=== PATIENT | female | born 1950 | race Caucasian/White ===

== ENCOUNTER 2016-07-21 09:01 | Outpatient (CLI) | payer MEDICARE ==
[2016-07-21] MEDS ORDERED: ALBUTEROL NEB 2.5 MG/3 ML INH ONE (09:36)
== END 2016-07-21 09:02 | disposition home or self-care (01) ==
DX: R06.09 Other forms of dyspnea (principal)
CPT/HCPCS: 94060; 94729; J7613

== ENCOUNTER 2016-08-14 09:07 | Outpatient (CLI) | payer MEDICARE | END 2016-08-14 09:08 | disposition home or self-care (01) | DX: I11.9 Hypertensive heart disease without heart failure (principal) ==

== ENCOUNTER 2017-05-10 12:42 | Emergency (ER) | payer MEDICARE ==
--- NOTE | 2017-05-10 12:57 | ED Physician Documentation ---
PD HPI LOWER EXT INJURY - Stated complaint Stated Complaint: RT KNEE PX - Chief complaint Chief Complaint: Ext Problem - History obtained from History obtained from: Patient - History of Present Illness PD HPI LOW EXT INJURY LOCATION: Right, Knee Type of injury: No: Fall, Twist Timing - onset: How many weeks ago (2 weeks of right knee pain, worse after walking a lot while on vacation in [place]. No calf pain nor lower leg swelling. Has swelling of knee itself.) Timing - duration: Weeks (2 weeks, worse the past few days.) Timing - details: Gradual onset, Still present Worsened by: Moving, Other (walking) Associated symptoms: Swelling. No: Weakness, Numbness Contributing factors: Prosthetic joint Similar symptoms before: Has not had sx before Recently seen: Not recently seen Review of Systems Constitutional: denies: Fever, Chills Skin: denies: Abrasion (s), Laceration (s) Neurologic: denies: Focal weakness, Numbness PD PAST MEDICAL HISTORY - Past Medical History Past Medical History: Yes Cardiovascular: Hypertension, High cholesterol, Other Respiratory: Sleep apnea, Other Neuro: None Endocrine/Autoimmune: HyPOthyroidism GI: GERD, Hiatal hernia : None HEENT: None Psych: Depression Musculoskeletal: Osteoarthritis, Chronic back pain Derm: Other - Past Surgical History Past Surgical History: Yes General: Appendectomy, Colonoscopy, EGD Ortho: Knee replacement, 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 HEENT: Tonsil/Adenoidectomy - Present Medications Home Medications: Ambulatory Orders Medication Instructions Recorded Confirmed Aspirin [Aspir 81] 81 mg PO DAILY 10/07/12 05/10/17 Levothyroxine Sodium [Levothroid] 75 mcg PO DAILY 10/07/12 05/10/17 Simvastatin [Zocor] 20 mg PO QPM 10/07/12 05/10/17 Hydrochlorothiazide 25 mg PO DAILY 01/12/14 05/10/17 Lisinopril 10 mg PO DAILY 01/12/14 05/10/17 Sertraline [Zoloft] 75 mg PO DAILY 05/10/17 05/10/17 Tramadol HCl 50 mg PO Q6H PRN #20 tablet 05/10/17 - Allergies Allergies/Adverse Reactions: Allergies Allergy/AdvReac Type Severity Reaction Status Date / Time oxycodone [Oxycodone] Allergy Intermediate Itching Verified 05/10/17 12:49 codeine [Codeine] AdvReac Mild Nausea Verified 05/10/17 12:49 - Social History Does the pt smoke?: No Smoking Status: Never smoker Does the pt drink ETOH?: Yes Does the pt have substance abuse?: No - Immunizations Immunizations are current?: Yes - POLST Patient has POLST: No PD ED PE NORMAL - Vitals Vital signs reviewed: Yes - General General: Alert and oriented X 3, No acute distress, Well developed/nourished - Derm Derm: Normal color, Warm and dry, No rash - Extremities Extremities: No edema, No calf tenderness / cord, Other (right knee with moderate effusion. No noted laxity on ligament testing. Pain with valgus stress. There is some clunking feeling with Lachmann testing. No laxity. ) - Neuro Neuro: No motor deficit, No sensory deficit - Psych Psych: Normal mood, Normal affect Results - Vitals Vitals: Vital Signs - 24 hr 05/10/17 05/10/17 12:46 14:33 Temperature 36.2 C L 36.4 C L Heart Rate 63 65 Respiratory 18 18 Rate Blood Pressure 149/90 H 146/80 H O2 Saturation 99 97 Oxygen O2 Source [With Activity] Nasal cannula O2 Source [Without Activity] Nasal cannula O2 Source Room air - Rads (name of study) knee right Radiology: Prelim report reviewed, EMP read contemporaneously (hypodensity of bone in proximal tibia, and some demineralization under the implant plateau. ) PD MEDICAL DECISION MAKING - ED course Complexity details: reviewed results, considered differential, d/w patient Departure - Departure Disposition: 01 Home, Self Care Clinical Impression: Knee effusion, right Knee pain, acute Qualifiers: Laterality: right Qualified Code(s): M25.561 - Pain in right knee Condition: Stable Record reviewed to determine appropriate education?: Yes Instructions: ED Effusion Knee Follow-Up: Lane Vaughn MD [Primary Care Provider] - Prescriptions: Tramadol HCl 50 mg PO Q6H PRN #20 tablet PRN Reason: Pain Comments: Use a knee brace when up and around for the next week or so. Have it off of your knee at times with gentle range of motion see her knee does not stiffen. Elevate and ice the knee periodically to help reduce the swelling. The swelling in the knee is mostly fluid inflammation and will just take some time with less irritation to get better. Use some ibuprofen or naproxen twice daily for the next several days. Add Tylenol or tramadol if needed for pain. Call orthopedics for an appointment with us soon follow-up in the next week or 2. Return sooner if worsening or other problems. Discharge Date/Time: 05/10/17 14:33
[2017-05-10] MEDS ORDERED: IBUPROFEN 600 MG TABLET PO STA (13:12)
[2017-05-10] MEDS ORDERED: ACETAMINOPHEN 325 MG TABLET PO STA (13:12)
--- NOTE | 2017-05-10 14:06 | XRAY Preliminary Report ---
Exam: XR KNEE 4 VIEW RT IMPRESSION: 1. Extensive demineralization involving the proximal tibia. Although no acute bony abnormality seen, this area is at markedly increased risk for insufficiency fracture. Recommend consideration of dedica myrna right knee CT scan to evaluate for such. In and of itself full differential of this area of demin eralization would include metastatic lesion, atypical for abscess, although appearance and location f avors benign etiology. 2. Demineralization adjacent to the femoral component more consistent with excessive granulation tiss ue rather than loosening. 3. Tiny joint effusion. [facility] SITE ID: [id number]
--- NOTE | 2017-05-10 14:18 | XRAY Report ---
EXAM: RIGHT KNEE RADIOGRAPHY EXAM DATE: 05/10/2017 01:50 PM. CLINICAL HISTORY: Pain for 2 weeks. No precipitating injury. COMPARISON: None. TECHNIQUE: 4 views. FINDINGS: Bones: Osteopenia. Trabecular and cortical patterns are intact. However, up to 2 cm thick demineralization along the margin of the femoral prosthetic component. Extensive uniform demineralization proximal 5 cm of the [place] residual tibia subjacent to the tibial prosthesis. Thinning of the cortex in both of these regions. Patella and associated prosthesis unremarkable. Joints: Surgical hardware intact. Tiny joint effusion. Bones and anatomic alignment. Soft Tissues: Normal. No soft tissue swelling. IMPRESSION: 1. Extensive demineralization involving the proximal tibia. Although no acute bony abnormality seen, this area is at markedly increased risk for insufficiency fracture. Recommend consideration of dedica myrna right knee CT scan to evaluate for such. In and of itself full differential of this area of demin eralization would include metastatic lesion, atypical for abscess, although appearance and location f avors benign etiology. 2. Demineralization adjacent to the femoral component more consistent with excessive granulation tiss ue rather than loosening. 3. Tiny joint effusion. [facility] Referring Provider Line: [phone] SITE ID: [id number]
[2017-05-10 14:36] VITALS: BP 146/80
== END 2017-05-10 14:33 | disposition home or self-care (01) ==
LOC: ED 12:42
DX: M25.461 Effusion, right knee (principal); M25.561 Pain in right knee; X50.0XXA Overexertion from strenuous movement or load, initial encounter; Y93.01 Activity, walking, marching and hiking; I10 Essential (primary) hypertension; E78.00 Pure hypercholesterolemia, unspecified; E03.9 Hypothyroidism, unspecified; K21.9 Gastro-esophageal reflux disease without esophagitis; M19.90 Unspecified osteoarthritis, unspecified site; Z79.82 Long term (current) use of aspirin
CPT/HCPCS: 29530; 73564; 99283; A9270

== ENCOUNTER 2017-06-03 08:18 | Outpatient (CLI) | payer MEDICARE ==
--- NOTE | 2017-06-03 17:00 | Nuclear Medicine Report ---
EXAM: TRIPLE-PHASE BONE SCAN LIMITED EXAM DATE: 06/03/2017 12:53 PM. CLINICAL HISTORY: RIGHT KNEE LOOSENED PROSTHESIS. COMPARISON: Right knee radiograph 05/10/2017. TECHNIQUE: Patient was injected with 31.9 mCi of technetium 99m MDP intravenously with flow phase lynette ma camera imaging anteriorly over the knees, 5 seconds per frame for 1 minute. Subsequently, blood po ol images of the knees were obtained. The patient returned 3 hours later for multiple spot images of the knees. FINDINGS: Flow Phase: There is moderate asymmetric flow to the region of the right knee. Blood Pool Phase: There is moderate asymmetric uptake/activity in the region of the right knee. Delayed Phase: There is evidence of a total right knee arthroplasty. There is lucency at the medial c ompartment of the left knee which may reflect unicompartmental arthroplasty. There is asymmetric mild -to-moderate periprosthetic uptake at the right knee most pronounced at the proximal tibial metaphysi s medially. IMPRESSION: Asymmetric three-phase uptake at the right knee, nonspecific but may reflect aseptic loos ening. Infection is not excluded. [place] Referring Provider Line: [phone] SITE ID: [id number]
== END 2017-06-03 08:19 | disposition home or self-care (01) ==
LOC: DI 08:18
PROVIDERS: ATTEND Orthopaedic Surgery
DX: T84.032A Mechanical loosening of internal right knee prosthetic joint, initial encounter (principal)
CPT/HCPCS: 78315; A9503

== ENCOUNTER 2017-08-13 12:28 | Emergency (ER) | payer MEDICARE ==
[2017-08-13 12:56] LABS: BASOPHILS # (AUTO) 0.1 10^3/uL (0.0-0.1); BASOPHILS % (AUTO) 1.2 %; EOSINOPHILS # (AUTO) 0.2 10^3/uL (0.0-0.7); EOSINOPHILS % (AUTO) 2.4 %; MEAN CORPUSCULAR HEMOGLOBIN 28.1 pg (27.0-31.0); MEAN CORPUSCULAR HGB CONC 34.1 g/dL (32.0-36.0); MEAN CORPUSCULAR VOLUME 82.4 fL (81.0-99.0); MEAN PLATELET VOLUME 9.2 fL (7.9-10.8); MONOCYTES # (AUTO) 0.7 10^3/uL (0.0-1.0); MONOCYTES % (AUTO) 7.8 %; NEUTROPHILS # (AUTO) 5.5 10^3/uL (1.5-6.6); NEUTROPHILS % (AUTO) 57.6 %; PLT - PLATELET COUNT 199 10^3/uL (130-450); RED BLOOD COUNT 4.63 10^6/uL (4.20-5.40); RED CELL DISTRIBUTION WIDTH 13.6 % (12.0-15.0); WHITE BLOOD COUNT 9.6 x10^3/uL (4.8-10.8)
[2017-08-13] MEDS ORDERED: LORazepam 0.5 MG TABLET PO STA (12:56)
--- NOTE | 2017-08-13 13:07 | ED Physician Documentation ---
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 states she never gets any sleep and is incredibly stressed also she quit using edible marijuana about 2 weeks ago and was started on gabapentin a few weeks ago also on prozac to ED today with agitation very pressured and manic, talking rapidly some flight of ideas, states she can' t take it any more and she just needs to sleep for weeks denies hallucinations denies SI denies HI denies illicit drugs other than THC Review of Systems Constitutional: denies: Fever Cardiac: denies: Chest pain / pressure Respiratory: denies: Dyspnea, Cough GI: denies: Abdominal Pain, Nausea, Vomiting Neurologic: denies: Headache Psychiatric: reports: Anxiety. 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 HEENT: Tonsil/Adenoidectomy - Present Medications Home Medications: Ambulatory Orders Medication Instructions Recorded Confirmed Aspirin [Aspir 81] 81 mg PO DAILY 10/07/12 05/10/17 Levothyroxine Sodium [Levothroid] 75 mcg PO DAILY 10/07/12 05/10/17 Simvastatin [Zocor] 20 mg PO QPM 10/07/12 05/10/17 Hydrochlorothiazide 25 mg PO DAILY 01/12/14 05/10/17 Lisinopril 10 mg PO DAILY 01/12/14 05/10/17 Sertraline [Zoloft] 75 mg PO DAILY 05/10/17 05/10/17 Tramadol HCl 50 mg PO Q6H PRN #20 tablet 05/10/17 - Allergies Allergies/Adverse Reactions: Allergies Allergy/AdvReac Type Severity Reaction Status Date / Time oxycodone [Oxycodone] Allergy Intermediate Itching Verified 05/10/17 12:49 codeine [Codeine] AdvReac Mild Nausea Verified 05/10/17 12:49 - Social History Does the pt smoke?: No Smoking Status: Never smoker Does the pt drink ETOH?: Yes Does the pt have substance abuse?: No - Immunizations Immunizations are current?: Yes - POLST Patient has POLST: No PD ED PE NORMAL - Vitals Vital signs reviewed: Yes - General General: Alert and oriented X 3 - HEENT HEENT: PERRL - Cardiac Cardiac: RRR - Respiratory Respiratory: No respiratory distress, Clear bilaterally - Abdomen Abdomen: Soft, Non tender - Derm Derm: Normal color - Neuro Neuro: Other (extremely agitated, yelling, pressured speech, erratic train of thought but able to answer specific questions clearly, denies SI and HI and hallucinations) Results - Vitals Vitals: Vital Signs - 24 hr 08/13/17 08/13/17 12:30 17:45 Temperature 37 C 36.6 C Heart Rate 96 59 L Respiratory 18 14 Rate Blood Pressure 149/97 H 118/53 L O2 Saturation 99 99 Oxygen O2 Source [] Nasal cannula O2 Source [] Nasal cannula O2 Source Room air - EKG (time done) 1728 Rate: Rate (enter#) (56) Rhythm: NSR Intervals: Normal MA, Wide QRS (borderline). No: Prolonged QT Ischemia: Non specific changes (flat to slightly inv T waves diffusely) Other comments: Other comments (no CP etc - only done per req from receiving mental health facility I presume for interval measurment) - Labs Labs: Laboratory Tests 08/13/17 08/13/17 08/13/17 12:49 12:50 12:50 WBC 9.6 RBC 4.63 Hgb 13.0 Hct 38.2 MCV 82.4 MCH 28.1 MCHC 34.1 RDW 13.6 Plt Count 199 MPV 9.2 Neut # 5.5 Lymph # 3.0 [place] # 0.7 Eos # 0.2 Baso # 0.1 Absolute Nucleated RBC 0.00 Nucleated RBC % 0.0 Sodium 133 L Potassium 3.0 L Chloride 101 Carbon Dioxide 21 Anion Gap 11.0 BUN 23 H Creatinine 1.0 Estimated GFR (MDRD) 55 L Glucose 85 Calcium 8.7 Total Bilirubin 0.7 AST 32 ALT 23 Alkaline Phosphatase 67 Total Protein 7.3 Albumin 4.5 Globulin 2.8 Albumin/Globulin Ratio 1.6 Lipase 29 TSH 2.71 Urine Color Urine Clarity Urine pH Ur Specific [place] Urine Protein Urine Glucose (UA) Urine Ketones Urine Occult Blood Urine Nitrite Urine Bilirubin Urine Urobilinogen Ur Leukocyte Esterase Ur Microscopic Review Urine Culture Comments Salicylates < 6.0 Urine Opiates Screen Ur Oxycodone Screen Urine Methadone Screen Ur Propoxyphene Screen Acetaminophen < 10 L Ur Barbiturates Screen Ur Tricyclics Screen Ur Phencyclidine Scrn Ur Amphetamine Screen U Methamphetamines Scrn U Benzodiazepines Scrn Urine Cocaine Screen U Cannabinoids Screen Ethyl Alcohol < 5.0 08/13/17 08/13/17 08/13/17 13:15 13:15 18:35 WBC RBC Hgb Hct MCV MCH MCHC RDW Plt Count MPV Neut # Lymph # [place] # Eos # Baso # Absolute Nucleated RBC Nucleated RBC % Sodium Potassium 3.0 L Chloride Carbon Dioxide Anion Gap BUN Creatinine Estimated GFR (MDRD) Glucose Calcium Total Bilirubin AST ALT Alkaline Phosphatase Total Protein Albumin Globulin Albumin/Globulin Ratio Lipase TSH Urine Color YELLOW Urine Clarity CLEAR Urine pH 5.0 Ur Specific [place] 1.010 Urine Protein NEGATIVE Urine Glucose (UA) NEGATIVE Urine Ketones NEGATIVE Urine Occult Blood NEGATIVE Urine Nitrite NEGATIVE Urine Bilirubin NEGATIVE Urine Urobilinogen 0.2 (NORMAL) Ur Leukocyte Esterase NEGATIVE Ur Microscopic Review NOT INDICATED Urine Culture Comments NOT INDICATED Salicylates Urine Opiates Screen NEGATIVE Ur Oxycodone Screen NEGATIVE Urine Methadone Screen NEGATIVE Ur Propoxyphene Screen NEGATIVE Acetaminophen Ur Barbiturates Screen NEGATIVE Ur Tricyclics Screen NEGATIVE Ur Phencyclidine Scrn NEGATIVE Ur Amphetamine Screen NEGATIVE U Methamphetamines Scrn NEGATIVE U Benzodiazepines Scrn NEGATIVE Urine Cocaine Screen NEGATIVE U Cannabinoids Screen NEGATIVE Ethyl Alcohol PD MEDICAL DECISION MAKING - ED course ED course: hx bipolar and appears to be manic possibly triggered by stress as caregiver and lack of sleep gave 2 mg ativan PO and pt was able to fall asleep for a while seen by KRIS Singh upon arrival labs done and fine except low K which was repleted - med clear approx 2 PM there is a vol bed at [facility] - they request a baseline EKG which was done KRIS Singh faxed all info including EKG and UA to [facility] prior to end of her shift at approx 5 PM awaiting response / acceptance pt was feeling weak and given food ativan should be wearing off now then developed muscular tightness in her mid right back after laying in a fast track gurney all day I went to eval her again - she is awake alert cooperative now and less pressured - sat up s difficulty or weakness, TTP with mm spasm and limited ROM to R upper lumbar region, MS intact to legs, already did UA neg for blood and infection gave lido patch and warm compress and encourage to to get up and walk around 1899 have not heard back from [facility] - so I called - intake states they did not receive the faxes from - now they have had two new admits and a walk in and a in house transfer - hopefully there is still a bed available - will re- fax info requested 1944 called to confirm faxes received - they were - however the bed the pt was going to in the "older pt" section is no longer available and the doc covering the other adult section is not comfortable accepting a pt of her age - [facility] intake advises they may have a dc and will call us if a bed becomes available but recommends we try transferring the pt elsewhere went and spoke with pt she is improved - we discussed possibly dc home, dc gabapentin, have another family member watch her father for a night or two so she can rest - but she and family still feel inpt care would be beneficial and wish to continue to wait for a bed to become available - found soup and sandwishes for dinner for her, ordered breakfast in the AM, and requested house sup to bring an inpt bed as pt is very uncomfortable on her fast track stretcher care turned over to Dr Byrd overnight EMP - would rec recheck K in the AM, asked nurses to remove lido patch at 12 hr gerda pt and family would like EMR sent to PM[facility] Dr Vaughn as well daughter works at crisis center and is familiar with mental health process Departure - Departure Clinical Impression: Manic behavior Condition: Good Follow-Up: Lane Vaughn MD [Primary Care Provider] -
[2017-08-13 13:11] LABS: ACETAMINOPHEN < 10 ug/mL (10-30); ALBUMIN 4.5 g/dL (3.2-5.5); ALBUMIN/GLOBULIN RATIO 1.6 (1.0-2.2); ALKALINE PHOSPHATASE 67 IU/L (42-121); ALT ALANINE AMINOTRANSFERASE 23 IU/L (10-60); AST ASPARTATE AMINOTRANSFERASE 32 IU/L (10-42); BILIRUBIN,TOTAL 0.7 mg/dL (0.2-1.0); BUN - BLOOD UREA NITROGEN 23 mg/dL (6-20); CALCIUM 8.7 mg/dL (8.5-10.3); CARBON DIOXIDE - CO2 21 mmol/L (21-32); CHLORIDE 101 mmol/L (101-111); GFR - MDRD 55 (>89); GLUCOSE 85 mg/dL (70-100); LIPASE 29 U/L (22-51); SALICYLATE < 6.0 mg/dL; SODIUM 133 mmol/L (135-145); TOTAL PROTEIN 7.3 g/dL (6.7-8.2)
[2017-08-13 13:22] LABS: MUDS CUTOFF CONCENTRATIONS CUTOFF CONC BELOW:
[2017-08-13 13:42] LABS: AMPHETAMINE SCREEN,URINE NEGATIVE (NEGATIVE); BENZODIAZEPINES SCREEN, URINE NEGATIVE (NEGATIVE); COCAINE SCREEN URINE NEGATIVE (NEGATIVE); METHADONE SCREEN, URINE NEGATIVE (NEGATIVE); METHAMPHETAMINES SCREEN, URINE NEGATIVE (NEGATIVE); OPIATE SCREEN, URINE NEGATIVE (NEGATIVE); OXYCODONE SCREEN, URINE NEGATIVE (NEGATIVE); PROPOXYPHENE SCREEN, URINE NEGATIVE (NEGATIVE); TRICYCLIC ANTIDEPRESSANT,URINE NEGATIVE (NEGATIVE)
[2017-08-13] MEDS ORDERED: POTASSIUM CHLORIDE 20 MEQ TABLET PO STA ×2 (15:23→19:13)
[2017-08-13 17:02] LABS: BILIRUBIN,URINE NEGATIVE (NEGATIVE); GLUCOSE, URINE (UA) NEGATIVE (NEGATIVE); KETONES,URINE (UA) NEGATIVE (NEGATIVE); LEUKOCYTE ESTERASE, URINE NEGATIVE (NEGATIVE); NITRITE,URINE NEGATIVE (NEGATIVE); OCCULT BLOOD,URINE NEGATIVE (NEGATIVE); PROTEIN,URINE NEGATIVE (NEGATIVE); UROBILINOGEN,URINE 0.2 (NORMAL) E.U./dL (NORMAL)
[2017-08-13 17:06] LABS: CLARITY,URINE CLEAR (CLEAR)
[2017-08-13] MEDS ORDERED: LIDOCAINE PATCH 5% TOP STA (18:25)
[2017-08-14 05:12] LABS: CALCIUM 8.5 mg/dL (8.5-10.3); CREATININE 0.8 mg/dL (0.4-1.0)
[2017-08-14] MEDS ORDERED: LORazepam 0.5 MG TABLET PO STA (06:19)
[2017-08-14 06:25] VITALS: BP 108/65
--- NOTE | 2017-08-14 09:29 | ED Physician Documentation ---
ED Addendum - Addendum Addendum: 08/14/17 09:27 At change of shift the patient's care was turned over to me pending disposition to mental health facility. Potassium was rechecked and is now normal at 3.9. The patient remained cooperative, and no further medication was administered. The district medical examiner contacted [facility] where the patient will be transferred for inpatient care. Transfer forms were completed, and the patient will be transferred via S ambulance.
== END 2017-08-14 11:00 ==
LOC: ED 12:28
DX: F30.10 Manic episode without psychotic symptoms, unspecified (principal); E87.6 Hypokalemia; I10 Essential (primary) hypertension; E78.00 Pure hypercholesterolemia, unspecified; E03.9 Hypothyroidism, unspecified; K21.9 Gastro-esophageal reflux disease without esophagitis; F32.9 Major depressive disorder, single episode, unspecified; M19.90 Unspecified osteoarthritis, unspecified site; Z79.82 Long term (current) use of aspirin
CPT/HCPCS: 36415; 80048; 80053; 80306; 80307; 81003; 83690; 84132; 84443; 85025; 93005; 99284; 99285; A9270; G0480; 80320; 80329; 81001; 87086

== ENCOUNTER 2017-10-10 11:20 | Outpatient (CLI) | payer MEDICARE | END 2017-10-10 11:21 | disposition home or self-care (01) | LOC: LAB.WCP 11:20 | PROVIDERS: ATTEND Family Medicine | DX: I10 Essential (primary) hypertension (principal) | CPT/HCPCS: 36415; 80048 ==

== ENCOUNTER 2018-01-11 11:41 | Outpatient (CLI) | payer MEDICARE ==
[2018-01-11 12:50] LABS: CALCIUM 8.9 mg/dL (8.5-10.3); CREATININE 1.1 mg/dL (0.4-1.0)
== END 2018-01-11 11:42 | disposition home or self-care (01) ==
LOC: LAB 11:41
PROVIDERS: ATTEND Physician Assistant
DX: E87.6 Hypokalemia (principal)
CPT/HCPCS: 36415; 80048

== ENCOUNTER 2018-09-17 08:00 | Outpatient (CLI) | payer MEDICARE ==
[2018-09-17 13:31] LABS: BASOPHILS # (AUTO) 0.1 10^3/uL (0.0-0.1); BASOPHILS % (AUTO) 1.3 %; EOSINOPHILS # (AUTO) 0.2 10^3/uL (0.0-0.7); EOSINOPHILS % (AUTO) 2.6 %; HGB - HEMOGLOBIN 12.3 g/dL (12.0-16.0); LYMPHOCYTES # (AUTO) 2.3 10^3/uL (1.5-3.5); LYMPHOCYTES % (AUTO) 30.1 %; MEAN CORPUSCULAR HEMOGLOBIN 28.1 pg (27.0-31.0); MEAN CORPUSCULAR HGB CONC 32.6 g/dL (32.0-36.0); MEAN CORPUSCULAR VOLUME 86.1 fL (81.0-99.0); MEAN PLATELET VOLUME 9.2 fL (7.9-10.8); MONOCYTES # (AUTO) 0.5 10^3/uL (0.0-1.0); MONOCYTES % (AUTO) 5.9 %; NEUTROPHILS # (AUTO) 4.6 10^3/uL (1.5-6.6); NEUTROPHILS % (AUTO) 60.1 %; PLT - PLATELET COUNT 192 10^3/uL (130-450); RED BLOOD COUNT 4.38 10^6/uL (4.20-5.40); RED CELL DISTRIBUTION WIDTH 13.9 % (12.0-15.0); WHITE BLOOD COUNT 7.7 x10^3/uL (4.8-10.8)
[2018-09-17 14:08] LABS: ALBUMIN 4.4 g/dL (3.2-5.5); ALBUMIN/GLOBULIN RATIO 1.5 (1.0-2.2); ALKALINE PHOSPHATASE 62 IU/L (42-121); ALT ALANINE AMINOTRANSFERASE 15 IU/L (10-60); AST ASPARTATE AMINOTRANSFERASE 19 IU/L (10-42); BILIRUBIN,TOTAL 0.6 mg/dL (0.2-1.0); BUN - BLOOD UREA NITROGEN 20 mg/dL (6-20); CALCIUM 8.8 mg/dL (8.5-10.3); CARBON DIOXIDE - CO2 25 mmol/L (21-32); CHLORIDE 101 mmol/L (101-111); CHOL/HDL RATIO 3.1 (<4.4); CHOLESTEROL 188 mg/dL; CREATININE 1.1 mg/dL (0.4-1.0); GFR - MDRD 49 (>89); GLUCOSE 88 mg/dL (70-100); HDL CHOLESTEROL 61 mg/dL; LDL CHOLESTEROL,CALCULATED 101 mg/dL; LDL/HDL RATIO 1.7 (<4.4); SODIUM 136 mmol/L (135-145); TOTAL PROTEIN 7.3 g/dL (6.7-8.2); VLDL CHOLESTEROL 26 mg/dL
== END 2018-09-17 23:59 | disposition home or self-care (01) ==
LOC: LAB.WCP 08:00
PROVIDERS: ATTEND Physician Assistant
DX: E78.5 Hyperlipidemia, unspecified (principal)
CPT/HCPCS: 36415; 80053; 80061; 83721; 84443; 85025

== ENCOUNTER 2019-04-23 08:00 | Outpatient (CLI) | payer MEDICARE ==
[2019-04-23 13:02] LABS: BASOPHILS # (AUTO) 0.1 10^3/uL (0.0-0.1); BASOPHILS % (AUTO) 0.6 %; EOSINOPHILS # (AUTO) 0.1 10^3/uL (0.0-0.7); EOSINOPHILS % (AUTO) 1.8 %; HGB - HEMOGLOBIN 13.1 g/dL (12.0-16.0); LYMPHOCYTES # (AUTO) 1.8 10^3/uL (1.5-3.5); LYMPHOCYTES % (AUTO) 23.4 %; MEAN CORPUSCULAR HEMOGLOBIN 28.6 pg (27.0-31.0); MEAN CORPUSCULAR VOLUME 89.5 fL (81.0-99.0); MEAN PLATELET VOLUME 11.9 fL (7.9-10.8); MONOCYTES # (AUTO) 0.5 10^3/uL (0.0-1.0); MONOCYTES % (AUTO) 6.1 %; NEUTROPHILS # (AUTO) 5.3 10^3/uL (1.5-6.6); NEUTROPHILS % (AUTO) 67.8 %; PLT - PLATELET COUNT 180 10^3/uL (130-450); RED BLOOD COUNT 4.58 10^6/uL (4.20-5.40); RED CELL DISTRIBUTION WIDTH 13.2 % (12.0-15.0); WHITE BLOOD COUNT 7.8 x10^3/uL (4.8-10.8)
[2019-04-23 13:10] LABS: ALBUMIN 4.6 g/dL (3.2-5.5); ALBUMIN/GLOBULIN RATIO 1.4 (1.0-2.2); ALKALINE PHOSPHATASE 74 IU/L (42-121); ALT ALANINE AMINOTRANSFERASE 15 IU/L (10-60); AST ASPARTATE AMINOTRANSFERASE 17 IU/L (10-42); BILIRUBIN,TOTAL 0.5 mg/dL (0.2-1.0); BUN - BLOOD UREA NITROGEN 27 mg/dL (6-20); CALCIUM 9.2 mg/dL (8.5-10.3); CARBON DIOXIDE - CO2 24 mmol/L (21-32); CHLORIDE 106 mmol/L (101-111); CHOLESTEROL 179 mg/dL; CREATININE 1.2 mg/dL (0.4-1.0); GFR - MDRD 44 (>89); GLUCOSE 84 mg/dL (70-100); HDL CHOLESTEROL 60 mg/dL; LDL CHOLESTEROL,CALCULATED 91 mg/dL; LDL/HDL RATIO 1.5 (<4.4); SODIUM 139 mmol/L (135-145); TOTAL PROTEIN 7.8 g/dL (6.7-8.2); VLDL CHOLESTEROL 28 mg/dL
== END 2019-04-23 23:59 | disposition home or self-care (01) ==
LOC: LAB.WCP 08:00
PROVIDERS: ATTEND Physician Assistant
DX: I10 Essential (primary) hypertension (principal); E78.9 Disorder of lipoprotein metabolism, unspecified; E03.9 Hypothyroidism, unspecified
CPT/HCPCS: 36415; 80053; 80061; 83721; 84443; 85025

== ENCOUNTER 2019-10-04 18:17 | Emergency (ER) | payer MEDICARE ==
[2019-10-04] MEDS ORDERED: ONDANSETRON 4 MG/2 ML VIAL IVP STA (18:38)
[2019-10-04] MEDS ORDERED: HYDROmorphone 1 MG/ML CARPUJECT IVP STA (18:38)
--- NOTE | 2019-10-04 18:40 | ED Physician Documentation ---
PD HPI ABD PAIN - Stated complaint Stated Complaint: ABD PX/BACK PX - Chief complaint Chief Complaint: Trauma Abd - History obtained from History obtained from: Patient (She has had right upper quadrant pain radiating to the back or right back pain radiating to the right upper quadrant for the last 3 days. It is worse in the afternoons. She is been nauseous and has had a poor appetite. No fevers or chills. She has a history of hysterectomy and appendectomy.) Review of Systems Ten Systems: 10 systems reviewed and negative Constitutional: denies: Fever, Chills Respiratory: denies: Dyspnea, Cough GI: reports: Abdominal Pain, Nausea PD PAST MEDICAL HISTORY - Past Medical History Cardiovascular: Hypertension, High cholesterol, Other Respiratory: Sleep apnea, Other Endocrine/Autoimmune: HyPOthyroidism GI: GERD, Hiatal hernia : None HEENT: None Psych: Depression Musculoskeletal: Osteoarthritis, Chronic back pain Derm: Other - Past Surgical History Past Surgical History: Yes General: Appendectomy, Colonoscopy, EGD Ortho: Knee replacement, 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 HEENT: Tonsil/Adenoidectomy - Present Medications Home Medications: Ambulatory Orders Medication Instructions Recorded Confirmed Aspirin [Aspir 81] 81 mg PO DAILY 10/07/12 05/10/17 Levothyroxine Sodium [Levothroid] 75 mcg PO DAILY 10/07/12 05/10/17 Simvastatin [Zocor] 20 mg PO QPM 10/07/12 05/10/17 Hydrochlorothiazide 25 mg PO DAILY 01/12/14 05/10/17 Lisinopril 10 mg PO DAILY 01/12/14 05/10/17 Sertraline [Zoloft] 75 mg PO DAILY 05/10/17 05/10/17 Tramadol HCl 50 mg PO Q6H PRN #20 tablet 05/10/17 Hydrocodone/Acetaminophen 1 - 2 each PO Q6H PRN #14 tablet 10/04/19 [Hydrocodon-Acetaminophen 5-325] Omeprazole 20 mg PO DAILY #30 capsule. 10/04/19 - Allergies Allergies/Adverse Reactions: Allergies Allergy/AdvReac Type Severity Reaction Status Date / Time oxycodone [Oxycodone] Allergy Intermediate Itching Verified 05/10/17 12:49 codeine [Codeine] AdvReac Mild Nausea Verified 05/10/17 12:49 - Social History Does the pt smoke?: No Smoking Status: Never smoker Does the pt drink ETOH?: Yes Does the pt have substance abuse?: No - Immunizations Immunizations are current?: Yes - POLST Patient has POLST: No PD ED PE NORMAL - Vitals Vital signs reviewed: Yes - General General: Alert and oriented X 3 (She appears uncomfortable and is clutching her right upper abdomen) - HEENT HEENT: PERRL, EOMI - Neck Neck: Supple, no meningeal sign, No bony TTP - Cardiac Cardiac: RRR, No murmur - Respiratory Respiratory: No respiratory distress, Clear bilaterally - Abdomen Abdomen: Other (Focally tender in the epigastrium and right upper quadrant with positive Benavidez sign) - Back Back: Other (There is a red gerda on her right flank from using heating pad there, it is not consistent with shingles at this point.) - Derm Derm: Normal color, Warm and dry - Extremities Extremities: No edema, No calf tenderness / cord - Neuro Neuro: Alert and oriented X 3, Normal speech Results - Vitals Vitals: Vital Signs - 24 hr 10/04/19 10/04/19 18:27 21:39 Temperature 36.6 C 36.5 C Heart Rate 58 L 50 L Respiratory 16 16 Rate Blood Pressure 118/58 L 103/59 L O2 Saturation 96 100 Oxygen O2 Source [With Activity] Nasal cannula O2 Source [Without Activity] Nasal cannula O2 Source Room air - Labs Labs: Laboratory Tests 10/04/19 10/04/19 10/04/19 18:50 18:50 18:50 WBC 8.4 RBC 4.18 L Hgb 12.1 Hct 36.8 L MCV 88.0 MCH 28.9 MCHC 32.9 RDW 13.9 Plt Count 173 MPV 11.1 H Neut # (Auto) 5.0 Lymph # (Auto) 2.5 [place] # (Auto) 0.5 Eos # (Auto) 0.2 Baso # (Auto) 0.1 Absolute Nucleated RBC 0.00 Nucleated RBC % 0.0 PT 13.8 H INR 1.2 Sodium 137 Potassium 3.7 Chloride 106 Carbon Dioxide 24 Anion Gap 7.0 BUN 24 H Creatinine 1.0 Estimated GFR (MDRD) 55 L Glucose 98 Calcium 8.6 Total Bilirubin 0.5 AST 16 ALT 14 Alkaline Phosphatase 69 Troponin I High Sens Total Protein 6.8 Albumin 4.1 Globulin 2.7 Albumin/Globulin Ratio 1.5 Lipase 45 10/04/19 18:50 WBC RBC Hgb Hct MCV MCH MCHC RDW Plt Count MPV Neut # (Auto) Lymph # (Auto) [place] # (Auto) Eos # (Auto) Baso # (Auto) Absolute Nucleated RBC Nucleated RBC % PT INR Sodium Potassium Chloride Carbon Dioxide Anion Gap BUN Creatinine Estimated GFR (MDRD) Glucose Calcium Total Bilirubin AST ALT Alkaline Phosphatase Troponin I High Sens < 2.3 L Total Protein Albumin Globulin Albumin/Globulin Ratio Lipase PD MEDICAL DECISION MAKING - ED course ED course: 69-year-old woman presents with right upper quadrant pain radiating to the back. Initial concern was for cholecystitis but no evidence of this on labs or ultrasound. This was followed by CT angiography to assess her vasculature, and notable for esophagitis versus esophageal mass. She did obtain significant relief with pain medications here and also with a GI cocktail. Discussed the need for follow-up endoscopy. Departure - Departure Disposition: 01 Home, Self Care Clinical Impression: Spasm of back muscles, Esophagitis, Abdominal pain Condition: Good Record reviewed to determine appropriate education?: Yes Instructions: ED GERD Prescriptions: Hydrocodone/Acetaminophen [Hydrocodon-Acetaminophen 5-325] 1 - 2 each PO Q6H PRN #14 tablet PRN Reason: pain Omeprazole 20 mg PO DAILY #30 capsule. Comments: Follow-up with your primary care physician, you will need a follow-up upper endoscopy. Return for new or worsening symptoms.
[2019-10-04 18:56] LABS: BASOPHILS # (AUTO) 0.1 10^3/uL (0.0-0.1); BASOPHILS % (AUTO) 0.6 %; EOSINOPHILS # (AUTO) 0.2 10^3/uL (0.0-0.7); EOSINOPHILS % (AUTO) 2.3 %; HGB - HEMOGLOBIN 12.1 g/dL (12.0-16.0); LYMPHOCYTES # (AUTO) 2.5 10^3/uL (1.5-3.5); LYMPHOCYTES % (AUTO) 30.1 %; MEAN CORPUSCULAR HEMOGLOBIN 28.9 pg (27.0-31.0); MEAN CORPUSCULAR HGB CONC 32.9 g/dL (32.0-36.0); MEAN PLATELET VOLUME 11.1 fL (7.9-10.8); MONOCYTES # (AUTO) 0.5 10^3/uL (0.0-1.0); MONOCYTES % (AUTO) 6.5 %; NEUTROPHILS % (AUTO) 60.1 %; PLT - PLATELET COUNT 173 10^3/uL (130-450); RED BLOOD COUNT 4.18 10^6/uL (4.20-5.40); RED CELL DISTRIBUTION WIDTH 13.9 % (12.0-15.0); WHITE BLOOD COUNT 8.4 x10^3/uL (4.8-10.8)
[2019-10-04 19:02] LABS: INR 1.2 (0.8-1.2); PT - PROTHROMBIN TIME 13.8 secs (9.9-12.6)
[2019-10-04 19:09] LABS: ALBUMIN 4.1 g/dL (3.2-5.5); ALBUMIN/GLOBULIN RATIO 1.5 (1.0-2.2); BILIRUBIN,TOTAL 0.5 mg/dL (0.2-1.0); CALCIUM 8.6 mg/dL (8.5-10.3); TOTAL PROTEIN 6.8 g/dL (6.7-8.2)
[2019-10-04] MEDS ORDERED: IOVERSOL 320 100 ML VIAL IVP ONE ×2 (20:00→20:59)
--- NOTE | 2019-10-04 20:03 | Ultrasound Report ---
Reason: RUQ pain Procedure Date: 10/04/2019 Accession Number: [id number] / [id number] Procedure: US - Abdomen Limited CPT Code: Final Report FULL RESULT: EXAM: ABDOMEN ULTRASOUND LIMITED, RUQ EXAM DATE: 10/04/2019 07:32 PM. CLINICAL HISTORY: RUQ pain. COMPARISON: None. TECHNIQUE: Real-time scanning was performed with static images obtained. FINDINGS: Liver: Normal in size and diffuse increased echotexture, suggestive of steatosis. 17.3 cm. Main portal vein flow: Hepatopetal. Gallbladder: Normal. No stones, wall thickening, or sonographic Benavidez's sign. Biliary System: CBD measures 4 mm. No intrahepatic or extrahepatic ductal dilatation. Other: Normal appearing right kidney. No ascites. IMPRESSION: Hepatic steatosis. No cholelithiasis or cholecystitis. [facility]
--- NOTE | 2019-10-04 21:34 | CT Report ---
Reason: abdominal/back pain Procedure Date: 10/04/2019 Accession Number: [id number] / [id number] Procedure: CT - ANGIO ABDOMEN/PELVIS W CPT Code: Final Report FULL RESULT: EXAM: CT ANGIOGRAM ABDOMEN AND PELVIS WITH CONTRAST EXAM DATE: 10/04/2019 08:55 PM. CLINICAL HISTORY: Abdominal/back pain. COMPARISONS: Ultrasound 10/04/2019, abdomen and pelvis 08/19/2015. TECHNIQUE: Routine helical CT angiogram imaging was performed through the abdomen and pelvis in the arterial phase. IV contrast: Optiray 320. Enteric contrast: No. Reconstructions: Coronal, sagittal, and 3D MIP reconstructions. In accordance with CT protocol optimization, one or more of the following dose reduction techniques were utilized for this exam: automated exposure control, adjustment of mA and/or KV based on patient size, or use of iterative reconstructive technique. FINDINGS: Vasculature: Minimal atherosclerotic calcification is present. No aneurysm or dissection. No occlusion or stenosis. Lung Bases: Normal. Abdominal Solid Organs: Normal. The liver, spleen, pancreas, adrenal glands, gallbladder and kidneys are normal in size and demonstrate no masses or abnormal enhancement. Peritoneal Cavity: Normal. No free fluid, free air, or acute inflammatory process. No bowel dilatation or acute inflammatory process. Pelvic Organs: The patient has had a hysterectomy. The bladder is unremarkable. Bones: Degenerative changes in the visualized spine. Other: None. IMPRESSION: No acute findings. RADIA
--- NOTE | 2019-10-04 21:36 | CT Report ---
Reason: abdominal/back pain Procedure Date: 10/04/2019 Accession Number: [id number] / [id number] Procedure: CT - ANGIO CHEST W/WO CPT Code: Final Report FULL RESULT: EXAM: CT ANGIOGRAM CHEST WITHOUT AND WITH CONTRAST EXAM DATE: 10/04/2019 08:57 PM. CLINICAL HISTORY: Abdominal/back pain. COMPARISON: None. TECHNIQUE: Routine helical imaging was performed through the chest before and after intravenous contrast. IV contrast: 100 mL Optiray 320. Reconstructions: Coronal, sagittal, and 3D MIP reconstructions of the aorta. FINDINGS: Vascular Structures: There is no acute aortic intramural hematoma. No aneurysm or dissection. Mild descending thoracic aortic atherosclerosis. There is moderate to severe atherosclerotic cardiovascular disease at the origin of the celiac axis, with mild luminal narrowing. There is mild to moderate atherosclerotic cardiovascular disease within the proximal SMA, partially visualized. There is at least mild narrowing of the SMA (image 140 series 3). Lungs/Pleura: No significant pulmonary consolidation. Nonspecific small lobular gas trapping within the right lower lobe. No effusion. No definite pneumothorax visualized. The central airways are without suspicious filling defect. Mediastinum: There is nonspecific mild fluid distended esophagus throughout the mediastinum, with mild apparent wall thickening of the lower esophagus. Possible small hiatal hernia noted. No pathologic mediastinal lymphadenopathy. Normal heart size. No pericardial effusion noted. Chest Wall: Nonspecific tiny left thyroid nodular density, of uncertain clinical significance. No pathologic axillary lymphadenopathy. Upper Abdomen: Limited visualized portions of the upper abdomen are without significant abnormality. Bones: No definite suspicious bony lesions are noted. Moderate to severe multilevel degenerative change within the spine. Other: None. IMPRESSION: 1. No acute aortic abnormality. 2. There is no incidental main, lobar, or proximal segmental embolism. 3. No acute pulmonary abnormality. 4. Mild descending thoracic atherosclerosis. Moderate upper abdominal aortic atherosclerosis with mild to moderate narrowing of the celiac axis as well as the proximal SMA. 5. Mild wall thickening of the lower half of the esophagus. There is fluid throughout the length of the esophagus within the mediastinum. Small hiatal hernia suspected. Combining findings could be secondary to reflux and esophagitis versus a distal esophageal mass. Further characterization could be considered with a nonemergent outpatient endoscopy. RADIA
[2019-10-04] MEDS ORDERED: MAG HYDROX/AL HYDROX/SIMETH 30 ML UDC PO STA (21:40)
[2019-10-04] MEDS ORDERED: LIDOCAINE VISCOUS 2% 15 ML UDC MM STA (21:40)
[2019-10-04] MEDS ORDERED: PANTOPRAZOLE 40 MG VIAL IVP STA (22:26)
[2019-10-04] MEDS ORDERED: HYDROcod/ACET 5/325 Prepack 4 PO STA (22:27)
[2019-10-04 22:41] VITALS: BP 102/50
== END 2019-10-04 22:53 | disposition home or self-care (01) ==
LOC: ED 18:17
DX: M62.830 Muscle spasm of back (principal); K20.9 Esophagitis, unspecified; R10.11 Right upper quadrant pain; I10 Essential (primary) hypertension
CPT/HCPCS: 36415; 71275; 74174; 76705; 80053; 83690; 84484; 85025; 85610; 96374; 96375; 99284; A9270; J1170; Q9967

== ENCOUNTER 2019-11-17 10:31 | Day surgery (SDC) | payer MEDICARE ==
[2019-11-17] MEDS ORDERED: MIDAZOLAM 2 MG/2 ML VIAL IVP ONE (10:32)
[2019-11-17] MEDS ORDERED: fentaNYL 250 MCG/5 ML VIAL IVP ONE (10:32)
[2019-11-17] MEDS ORDERED: LACTATED RINGERS 1,000 ML IV ONE (13:15)
[2019-11-17 15:10] VITALS: BP 150/78
== END 2019-11-17 10:32 | disposition home or self-care (01) ==
LOC: SDS 10:31
PROVIDERS: ATTEND Surgery
PROC: 0DB58ZX Excision of Esophagus, Via Natural or Artificial Opening Endoscopic, Diagnostic (ICD-10-PCS; principal; 2019-11-17 11:30)
DX: R13.10 Dysphagia, unspecified (principal); K21.9 Gastro-esophageal reflux disease without esophagitis; Z87.891 Personal history of nicotine dependence; I11.9 Hypertensive heart disease without heart failure
CPT/HCPCS: 43239; J3010; J7120

== ENCOUNTER 2019-11-26 12:48 | Outpatient (CLI) | payer MEDICARE | END 2019-11-26 12:49 | disposition critical access hospital (66) | LOC: EMS 12:48 | PROVIDERS: ATTEND Surgery | DX: R46.89 Other symptoms and signs involving appearance and behavior (principal) | CPT/HCPCS: A0425; A0428 ==

== ENCOUNTER 2019-11-26 13:00 | Emergency (ER) | payer MEDICARE ==
[2019-11-26 13:56] LABS: MUDS CUTOFF CONCENTRATIONS CUTOFF CONC BELOW:
[2019-11-26 14:01] LABS: BILIRUBIN,URINE NEGATIVE (NEGATIVE); GLUCOSE, URINE (UA) NEGATIVE (NEGATIVE); KETONES,URINE (UA) NEGATIVE (NEGATIVE); LEUKOCYTE ESTERASE, URINE NEGATIVE (NEGATIVE); NITRITE,URINE NEGATIVE (NEGATIVE); OCCULT BLOOD,URINE NEGATIVE (NEGATIVE); PH,URINE 5.5 PH (5.0-7.5); PROTEIN,URINE NEGATIVE (NEGATIVE); UROBILINOGEN,URINE 0.2 (NORMAL) E.U./dL (NORMAL)
[2019-11-26 14:02] LABS: BASOPHILS # (AUTO) 0.1 10^3/uL (0.0-0.1); BASOPHILS % (AUTO) 0.6 %; EOSINOPHILS # (AUTO) 0.1 10^3/uL (0.0-0.7); EOSINOPHILS % (AUTO) 1.5 %; HGB - HEMOGLOBIN 13.2 g/dL (12.0-16.0); LYMPHOCYTES # (AUTO) 1.6 10^3/uL (1.5-3.5); LYMPHOCYTES % (AUTO) 19.7 %; MEAN CORPUSCULAR HEMOGLOBIN 29.1 pg (27.0-31.0); MEAN CORPUSCULAR HGB CONC 32.8 g/dL (32.0-36.0); MEAN PLATELET VOLUME 10.7 fL (7.9-10.8); MONOCYTES # (AUTO) 0.5 10^3/uL (0.0-1.0); MONOCYTES % (AUTO) 5.7 %; NEUTROPHILS # (AUTO) 5.7 10^3/uL (1.5-6.6); NEUTROPHILS % (AUTO) 72.1 %; PLT - PLATELET COUNT 195 10^3/uL (130-450); RED BLOOD COUNT 4.53 10^6/uL (4.20-5.40); RED CELL DISTRIBUTION WIDTH 13.5 % (12.0-15.0); WHITE BLOOD COUNT 7.9 x10^3/uL (4.8-10.8)
[2019-11-26 14:02] LABS: CLARITY,URINE SL. CLOUDY (CLEAR)
[2019-11-26 14:09] LABS: BACTERIA,URINE Rare /HPF (None Seen); RBC,URINE None Seen /HPF (0-5); SQUAMOUS EPITHELIAL CELL,UR MANY Squamous (<= Few)
[2019-11-26 14:12] LABS: AMPHETAMINE SCREEN,URINE NEGATIVE (NEGATIVE); BENZODIAZEPINES SCREEN, URINE NEGATIVE (NEGATIVE); COCAINE SCREEN URINE NEGATIVE (NEGATIVE); METHADONE SCREEN, URINE NEGATIVE (NEGATIVE); METHAMPHETAMINES SCREEN, URINE NEGATIVE (NEGATIVE); OPIATE SCREEN, URINE NEGATIVE (NEGATIVE); OXYCODONE SCREEN, URINE NEGATIVE (NEGATIVE); PROPOXYPHENE SCREEN, URINE NEGATIVE (NEGATIVE); TRICYCLIC ANTIDEPRESSANT,URINE POSITIVE (NEGATIVE)
[2019-11-26 14:19] LABS: ACETAMINOPHEN < 10 ug/mL (10-30); ALBUMIN 5.2 g/dL (3.2-5.5); ALBUMIN/GLOBULIN RATIO 2.3 (1.0-2.2); ALKALINE PHOSPHATASE 72 IU/L (42-121); ALT ALANINE AMINOTRANSFERASE 13 IU/L (10-60); AST ASPARTATE AMINOTRANSFERASE 15 IU/L (10-42); BILIRUBIN,TOTAL 0.5 mg/dL (0.2-1.0); BUN - BLOOD UREA NITROGEN 20 mg/dL (6-20); CALCIUM 9.1 mg/dL (8.5-10.3); CARBON DIOXIDE - CO2 26 mmol/L (21-32); CHLORIDE 102 mmol/L (101-111); CREATININE 1.3 mg/dL (0.4-1.0); GLUCOSE 104 mg/dL (70-100); LIPASE 53 U/L (22-51); SALICYLATE < 6.0 mg/dL; SODIUM 136 mmol/L (135-145); TOTAL PROTEIN 7.5 g/dL (6.7-8.2)
--- NOTE | 2019-11-26 14:46 | ED Physician Documentation ---
PD HPI MHE - Stated complaint Stated Complaint: MHE - Chief complaint Chief Complaint: MHE - History obtained from History obtained from: Patient, EMS - History of Present Illness Primary symptom: Manic, Aggressive behavior, Medical clearance - Additional information Additional information: 69-year-old female brought into the emergency department for mental health evaluation. Patient reports that she does have a history of bipolar disorder. Her daughter had verbally reported to the nurses that patient's been having increasing insomnia over the last few days the this week osborne of family anniversary of multiple deaths. Patient felt that she was not safe with her family and barricaded herself in the barn at home. She did not want her family to be around her and did not feel safe therefore the patient herself called EMS or 911.Patient may have been using a knife to paint but did not threaten anybody with it. Patient is not able to describe the medications that she is taking to me but says she has not taken them for a while. She admits to daily cannabis use. She denies auditory or visual hallucinations. She does not have thoughts of self-harm. Patient states that she simply will not go home anymore and she does not want to be around her family. Review of Systems Constitutional: denies: Fever, Chills Cardiac: denies: Chest pain / pressure, Palpitations, Pedal edema, Calf pain Respiratory: denies: Dyspnea, Cough GI: denies: Abdominal Pain, Abdominal Swelling, Diarrhea : denies: Dysuria, Frequency Skin: denies: Rash, Lesions Neurologic: denies: Generalized weakness, Headache, Head injury, LOC Psychiatric: reports: Insomnia, Other (Increasing reese over the last few days. Does not feel safe at home). denies: Depressed, Suicidal, Homicidal PD PAST MEDICAL HISTORY - Past Medical History Cardiovascular: Hypertension, High cholesterol, Other Respiratory: Sleep apnea, Other Endocrine/Autoimmune: HyPOthyroidism GI: GERD, Hiatal hernia : None HEENT: None Psych: Depression, Anxiety, Bipolar disorder, Panic attacks, Post traumatic stress disorder Musculoskeletal: Osteoarthritis, Chronic back pain Derm: Other - Past Surgical History Past Surgical History: Yes General: Appendectomy, Colonoscopy, EGD Ortho: Knee replacement, 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 surgery /POSTBED STITCHER: Hysterectomy HEENT: Tonsil/Adenoidectomy - Present Medications Home Medications: Ambulatory Orders Medication Instructions Recorded Confirmed Aspirin [Aspir 81] 81 mg PO DAILY 10/07/12 05/10/17 Levothyroxine Sodium [Levothroid] 75 mcg PO DAILY 10/07/12 11/17/19 Simvastatin [Zocor] 40 mg PO QPM 10/07/12 11/17/19 Lisinopril 10 mg PO DAILY 01/12/14 11/17/19 Sertraline [Zoloft] 75 mg PO DAILY 05/10/17 11/17/19 Omeprazole 40 mg PO DAILY 11/17/19 11/17/19 QUEtiapine [SEROquel] 100 mg PO QPM 11/17/19 11/17/19 Trazodone HCl 150 mg PO DAILY 11/17/19 11/17/19 lamoTRIgine [Lamotrigine] 25 mg PO BID 11/17/19 11/17/19 Atorvastatin [Lipitor] 40 mg ORAL DAILY 11/26/19 11/26/19 QUEtiapine [SEROquel] 25 mg PO DAILY 11/26/19 11/26/19 - Allergies Allergies/Adverse Reactions: Allergies Allergy/AdvReac Type Severity Reaction Status Date / Time oxycodone [Oxycodone] Allergy Intermediate Itching Verified 11/26/19 13:21 codeine [Codeine] AdvReac Mild Nausea Verified 11/26/19 13:21 - Social History Does the pt smoke?: No Smoking Status: Never smoker Does the pt drink ETOH?: Yes Does the pt have substance abuse?: No - Immunizations Immunizations are current?: Yes - POLST Patient has POLST: No PD ED PE NORMAL - General General: Alert and oriented X 3, No acute distress, Well developed/nourished - HEENT HEENT: PERRL, EOMI - Cardiac Cardiac: RRR, No murmur - Respiratory Respiratory: No respiratory distress - Abdomen Abdomen: Normal bowel sounds, Soft - Derm Derm: Normal color, Warm and dry - Extremities Extremities: No deformity, No tenderness to palpate, Normal ROM s pain - Neuro Neuro: Alert and oriented X 3, associate embalmer/funeral director 2-12 intact, No motor deficit, No sensory deficit Eye Opening: Spontaneous Motor: Obeys Commands Verbal: Oriented GCS Score: 15 - Psych Psych: Other (Patient isFearful of being at her home. She is not agitated but her expressions are very exaggerated. She has no auditory or visual hallucinations and she is very cooperative with the ER staff) Results - Vitals Vitals: Vital Signs - 24 hr 11/26/19 13:00 Temperature 36.5 C Heart Rate 80 Respiratory 18 Rate Blood Pressure 136/109 H O2 Saturation 100 Oxygen O2 Source [] Nasal cannula O2 Source [] Nasal cannula O2 Source Room air - EKG (time done) 1543 Rate: Rate (enter#) (65) Rhythm: NSR [place]: Normal Intervals: Normal [place], Other (QTc 495) QRS: Normal Ischemia: Normal ST segments Compare to prior EKG: Old EKG unavailable Computer interpretation: Agree with computer - Labs Labs: Laboratory Tests 11/26/19 11/26/19 11/26/19 13:00 13:54 13:54 WBC 7.9 RBC 4.53 Hgb 13.2 Hct 40.3 MCV 89.0 MCH 29.1 MCHC 32.8 RDW 13.5 Plt Count 195 MPV 10.7 Neut # (Auto) 5.7 Lymph # (Auto) 1.6 [place] # (Auto) 0.5 Eos # (Auto) 0.1 Baso # (Auto) 0.1 Absolute Nucleated RBC 0.00 Nucleated RBC % 0.0 Sodium 136 Potassium 4.3 Chloride 102 Carbon Dioxide 26 Anion Gap 8.0 BUN 20 Creatinine 1.3 H Estimated GFR (MDRD) 40 L Glucose 104 H Calcium 9.1 Total Bilirubin 0.5 AST 15 ALT 13 Alkaline Phosphatase 72 Total Protein 7.5 Albumin 5.2 Globulin 2.3 Albumin/Globulin Ratio 2.3 H Lipase 53 H TSH Urine Color YELLOW Urine Clarity SL. CLOUDY Urine pH 5.5 Ur Specific [place] 1.020 Urine Protein NEGATIVE Urine Glucose (UA) NEGATIVE Urine Ketones NEGATIVE Urine Occult Blood NEGATIVE Urine Nitrite NEGATIVE Urine Bilirubin NEGATIVE Urine Urobilinogen 0.2 (NORMAL) Ur Leukocyte Esterase NEGATIVE Urine RBC None Seen Urine WBC 0-3 Ur Squamous Epith Cells MANY Squamous H Urine Bacteria Rare Ur Microscopic Review INDICATED Urine Culture Comments NOT INDICATED Salicylates < 6.0 Urine Opiates Screen NEGATIVE Ur Oxycodone Screen NEGATIVE Urine Methadone Screen NEGATIVE Ur Propoxyphene Screen NEGATIVE Acetaminophen < 10 L Ur Barbiturates Screen NEGATIVE Ur Tricyclics Screen POSITIVE H Ur Phencyclidine Scrn NEGATIVE Ur Amphetamine Screen NEGATIVE U Methamphetamines Scrn NEGATIVE U Benzodiazepines Scrn NEGATIVE Urine Cocaine Screen NEGATIVE U Cannabinoids Screen POSITIVE H Ethyl Alcohol < 5.0 11/26/19 13:54 WBC RBC Hgb Hct MCV MCH MCHC RDW Plt Count MPV Neut # (Auto) Lymph # (Auto) [place] # (Auto) Eos # (Auto) Baso # (Auto) Absolute Nucleated RBC Nucleated RBC % Sodium Potassium Chloride Carbon Dioxide Anion Gap BUN Creatinine Estimated GFR (MDRD) Glucose Calcium Total Bilirubin AST ALT Alkaline Phosphatase Total Protein Albumin Globulin Albumin/Globulin Ratio Lipase TSH 1.28 Urine Color Urine Clarity Urine pH Ur Specific [place] Urine Protein Urine Glucose (UA) Urine Ketones Urine Occult Blood Urine Nitrite Urine Bilirubin Urine Urobilinogen Ur Leukocyte Esterase Urine RBC Urine WBC Ur Squamous Epith Cells Urine Bacteria Ur Microscopic Review Urine Culture Comments Salicylates Urine Opiates Screen Ur Oxycodone Screen Urine Methadone Screen Ur Propoxyphene Screen Acetaminophen Ur Barbiturates Screen Ur Tricyclics Screen Ur Phencyclidine Scrn Ur Amphetamine Screen U Methamphetamines Scrn U Benzodiazepines Scrn Urine Cocaine Screen U Cannabinoids Screen Ethyl Alcohol PD MEDICAL DECISION MAKING - ED course Complexity details: reviewed results, re-evaluated patient, d/w patient ED course: 69-year-old female who has a history of a bipolar disorder because she has been developing increasing reese over the last few weeks and no longer feels safe with her family. She barricaded herself in a barn and called 911 to retrieve her. She denies thoughts of harm to herself or others but simply does not want to be around her family anymore. At present she does not have any SI or HI. She denies any hallucinations as well. However she is adamant that she cannot return to her home and will kill herself if forced to return - After lengthy emergency department visit stay patient has been evaluated by tele-psych. The tele-psych provider described the patient as acutely psychotic with delusions of paranoia. Though her hospitalization is voluntary he would recommend placement. - Patient was refused by [facility] secondary to a Qt-c of 495 on EKG. Patient also spoke with [facility] mental health providers on the phone while here in the emergency department. Though they have evaluated the tele-psych documentation they do not feel that patient needs inpatient psychiatric treatment and have therefore refused her. - At this time we will be boarding the patient overnight in the emergency department. We will have social work and/or [facility] evaluate pt in the am for further placement. Pt has starr ordered for administration tonight and is otherwise stable Departure - Departure Clinical Impression: Paranoia
--- NOTE | 2019-11-26 19:45 | TELEPSYCH PHYS NOTE ---
Telepsych Note - CHIEF COMPLAINT/HX OF PRESENT ILLNESS Cheif Complaint and History of Present Illness: Chief Complaint: Im afraid for my life. HPI: The patient is a 69-year-old female with a history of Bipolar Disorder. She was brought to the hospital due to extreme paranoia. The patient was barricading herself in her room because she was afraid of her family. When seen by psychiatry, the patient stated that her grandson is a heroin addict and the mother is enabling him. "He's allowing illegal things that happen inside the house." The patient repeatedly stated that she was "afraid for her life." She was rambling and hyper verbal. The patient is unable to articulate exactly how she was at risk. Patient denied hallucinations. She originally denied suicidal thoughts but said that she would rather kill herself the return home due to the threat. "No one believes me and they think I'm crazy." The patient reports that she is compliant with her psychiatric regimen. - SI/HI/SELF HARM SI/HI/Self Harm Text (Current or History of):: tried to overdose on pills in the past. - VIOLENCE/LEGAL/COLLATERAL Violence - Legal - Collateral: Violence: none Legal: arrested for shoplifting at 13 Collateral: none - PSYCHIATRIC HX/TREATMENT HX Psychiatric: Depression, Anxiety, Bipolar disorder, Panic attacks, Post traumatic stress disorder Psychiatric/Treatment Hx Other: 3 prior admissions, last at [facility] 2017. - DRUG/ALCOHOL HX Substance use/abuse/alcohol text: MJ-daily - MEDICAL HX Does the pt have a hx of MRSA?: No Eyes, Ears, Nose, Throat: None Cardiovascular: Hypertension, High cholesterol, Other Respiratory: Sleep apnea, Other Skin: Other Endocrine/Autoimmune: HyPOthyroidism Gastrointestinal: GERD, Hiatal hernia Urinary: None Musculoskeletal: Osteoarthritis, Chronic back pain - SURGICAL HX General: Appendectomy, Colonoscopy, EGD Orthopedic: Knee replacement, 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 surgery Gynecologic: Hysterectomy - HOME MEDICATIONS Home Meds (as last confirmed): Patient History Medication Instructions Recorded Confirmed Aspirin [Aspir 81] 81 mg PO DAILY 10/07/12 05/10/17 Levothyroxine Sodium [Levothroid] 75 mcg PO DAILY 10/07/12 11/17/19 Simvastatin [Zocor] 40 mg PO QPM 10/07/12 11/17/19 Lisinopril 10 mg PO DAILY 01/12/14 11/17/19 Sertraline [Zoloft] 75 mg PO DAILY 05/10/17 11/17/19 Omeprazole 40 mg PO DAILY 11/17/19 11/17/19 QUEtiapine [SEROquel] 100 mg PO QPM 11/17/19 11/17/19 Trazodone HCl 150 mg PO DAILY 11/17/19 11/17/19 lamoTRIgine [Lamotrigine] 25 mg PO BID 11/17/19 11/17/19 Atorvastatin [Lipitor] 40 mg ORAL DAILY 11/26/19 11/26/19 QUEtiapine [SEROquel] 25 mg PO DAILY 11/26/19 11/26/19 - ALLERGIES Allergies (as last confirmed): Allergies Allergy/AdvReac Type Severity Reaction Status Date / Time oxycodone [Oxycodone] Allergy Intermediate Itching Verified 11/26/19 13:21 codeine [Codeine] AdvReac Mild Nausea Verified 11/26/19 13:21 - FAMILY PSYCH/SUICIDE/SOCIAL HX-MENTAL Family - Suicide - Social Hx and Mental Status Exam: Family Psychiatric History: "They all have PTSD, Bipolar Disorder, and depression." Social History: , Lives with children Employment: none Education: HS grad, some college Stressors: see HPI History: none Abuse: none Mental Status Examination: Attitude and behavior: cooperative, + PM agitation Speech: hyperverbal, pressured Affect and mood: anxious affect and mood Association and thought processes: disorganized Thought content: + paranoid delusions, the patient initially denied suicidal thoughts but said that she would rather end her life and return home Perception: no hallucinations Sensorium, memory, and orientation: AAOx3 Intellectual functioning: average Insight and judgment: impaired - PATIENT PROBLEM LIST (1) Bipolar disorder, current episode manic without psychotic features Impression: The patient is a 69-year-old female with a history of Bipolar Disorder who presented to the hospital with paranoid delusions. Patient believes that she is in danger and she has verbalized suicidal ideations if she is forced to return home. Patient is abusing marijuana which is likely impacting her current presentation. She was brought to the hospital after barricading herself in her home due to her psychosis. The patient is grossly psychiatrically impaired and in need of inpatient treatment. She is agreeable to inpatient psychiatric care. It is voluntary. (2) Bipolar disorder, manic Qualifiers: Psychotic features: with psychotic features - TREATMENT/PHARMACOLOGICAL RECOMMENDATION Treatment - Pharmacological - Therapy Recommendations: Start Seroquel 50 mg QAM and 150 mg QHS. Continue Lamictal 25 mg BID and Zoloft 75 mg daily. Transfer to a psychiatric bed was available. Initiate involuntary commitment if the patient changes her mind. - TIME SPENT & PROVIDER LOCATION Telepsych consultation conducted via videoconferencing: Yes List names and roles of persons who participated in consult: Baudilio Stanley MD Telepsych Provider Location: [place] Time Telepsych consult began: 18:48 Time Telepsych consult completed: 19:10
[2019-11-26] MEDS ORDERED: QUEtiapine 100 MG TABLET PO SCH (21:00)
[2019-11-27] MEDS ORDERED: QUEtiapine 25 MG TABLET PO STA (08:19)
[2019-11-27] MEDS ORDERED: lamoTRIgine 25 MG TABLET PO STA (08:19)
[2019-11-27] MEDS ORDERED: SERTRALINE 25 MG TABLET PO STA (08:20)
[2019-11-27] MEDS ORDERED: lisinopriL 5 MG TABLET PO STA (08:21)
[2019-11-27] MEDS ORDERED: PANTOPRAZOLE 40 MG TABLET PO STA (08:21)
[2019-11-27] MEDS ORDERED: LEVOTHYROXINE 75 MCG TABLET PO STA (08:22)
[2019-11-27] MEDS ORDERED: ASPIRIN CHEW 81 MG TABLET PO STA (08:22)
--- NOTE | 2019-11-27 08:53 | ED Physician Documentation ---
PD HPI MHE - Stated complaint Stated Complaint: MHE - Chief complaint Chief Complaint: MHE PD PAST MEDICAL HISTORY - Past Medical History Past Medical History: Yes Cardiovascular: Hypertension, High cholesterol, Other Respiratory: Sleep apnea, Other Endocrine/Autoimmune: HyPOthyroidism GI: GERD, Hiatal hernia : None HEENT: None Psych: Depression, Anxiety, Bipolar disorder, Panic attacks, Post traumatic stress disorder Musculoskeletal: Osteoarthritis, Chronic back pain Derm: Other - Past Surgical History Past Surgical History: Yes General: Appendectomy, Colonoscopy, EGD Ortho: Knee replacement, 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 surgery /SEAMER: Hysterectomy HEENT: Tonsil/Adenoidectomy - Present Medications Home Medications: Ambulatory Orders Medication Instructions Recorded Confirmed Aspirin [Aspir 81] 81 mg PO DAILY 10/07/12 05/10/17 Levothyroxine Sodium [Levothroid] 75 mcg PO DAILY 10/07/12 11/17/19 Simvastatin [Zocor] 40 mg PO QPM 10/07/12 11/17/19 Lisinopril 10 mg PO DAILY 01/12/14 11/17/19 Aspirin 81 mg PO DAILY #7 tab.chew 11/27/19 Atorvastatin [Lipitor] 40 mg ORAL DAILY #7 tab 11/27/19 Levothyroxine [Synthroid] 75 mcg PO QDAC #7 tablet 11/27/19 Lisinopril [Prinivil] 10 mg PO DAILY #7 tablet 11/27/19 Omeprazole 40 mg PO DAILY #14 tab 11/27/19 QUEtiapine [SEROquel] 25 mg PO DAILY #7 tab 11/27/19 QUEtiapine [SEROquel] 100 mg PO QPM #7 tab 11/27/19 Sertraline [Zoloft] 75 mg PO DAILY #21 tab 11/27/19 Trazodone HCl 150 mg PO QPM #7 tab 11/27/19 lamoTRIgine [Lamotrigine] 25 mg PO BID #14 tab 11/27/19 - Allergies Allergies/Adverse Reactions: Allergies Allergy/AdvReac Type Severity Reaction Status Date / Time oxycodone [Oxycodone] Allergy Intermediate Itching Verified 11/26/19 13:21 codeine [Codeine] AdvReac Mild Nausea Verified 11/26/19 13:21 - Social History Does the pt smoke?: No Smoking Status: Never smoker Does the pt drink ETOH?: Yes Does the pt have substance abuse?: No - Immunizations Immunizations are current?: Yes - POLST Patient has POLST: No Results - Vitals Vitals: Vital Signs - 24 hr 11/26/19 11/27/19 11/27/19 21:31 00:55 06:15 Temperature 36.8 C Heart Rate 65 69 72 Respiratory 17 16 16 Rate Blood Pressure 122/58 L 124/68 147/92 H O2 Saturation 100 100 99 11/27/19 11/27/19 12:42 15:05 Temperature 37.2 C 37.2 C Heart Rate 72 69 Respiratory 16 16 Rate Blood Pressure 109/53 L 123/87 H O2 Saturation 98 99 Oxygen O2 Source [] Nasal cannula O2 Source [] Nasal cannula O2 Source Room air - EKG (time done) 0838 Rate: Rate (enter#) (65) Rhythm: NSR, LAE QRS: LVH Compare to prior EKG: Changed from prior EKG (SPT 11-26-2019 the QTc has decreased) Computer interpretation: Agree with computer - Labs Labs: Laboratory Tests 11/26/19 11/26/19 11/26/19 13:00 13:54 13:54 WBC 7.9 RBC 4.53 Hgb 13.2 Hct 40.3 MCV 89.0 MCH 29.1 MCHC 32.8 RDW 13.5 Plt Count 195 MPV 10.7 Neut # (Auto) 5.7 Lymph # (Auto) 1.6 [place] # (Auto) 0.5 Eos # (Auto) 0.1 Baso # (Auto) 0.1 Absolute Nucleated RBC 0.00 Nucleated RBC % 0.0 Sodium 136 Potassium 4.3 Chloride 102 Carbon Dioxide 26 Anion Gap 8.0 BUN 20 Creatinine 1.3 H Estimated GFR (MDRD) 40 L Glucose 104 H Calcium 9.1 Total Bilirubin 0.5 AST 15 ALT 13 Alkaline Phosphatase 72 Total Protein 7.5 Albumin 5.2 Globulin 2.3 Albumin/Globulin Ratio 2.3 H Lipase 53 H TSH Urine Color YELLOW Urine Clarity SL. CLOUDY Urine pH 5.5 Ur Specific [place] 1.020 Urine Protein NEGATIVE Urine Glucose (UA) NEGATIVE Urine Ketones NEGATIVE Urine Occult Blood NEGATIVE Urine Nitrite NEGATIVE Urine Bilirubin NEGATIVE Urine Urobilinogen 0.2 (NORMAL) Ur Leukocyte Esterase NEGATIVE Urine RBC None Seen Urine WBC 0-3 Ur Squamous Epith Cells MANY Squamous H Urine Bacteria Rare Ur Microscopic Review INDICATED Urine Culture Comments NOT INDICATED Salicylates < 6.0 Urine Opiates Screen NEGATIVE Ur Oxycodone Screen NEGATIVE Urine Methadone Screen NEGATIVE Ur Propoxyphene Screen NEGATIVE Acetaminophen < 10 L Ur Barbiturates Screen NEGATIVE Ur Tricyclics Screen POSITIVE H Ur Phencyclidine Scrn NEGATIVE Ur Amphetamine Screen NEGATIVE U Methamphetamines Scrn NEGATIVE U Benzodiazepines Scrn NEGATIVE Urine Cocaine Screen NEGATIVE U Cannabinoids Screen POSITIVE H Ethyl Alcohol < 5.0 11/26/19 13:54 WBC RBC Hgb Hct MCV MCH MCHC RDW Plt Count MPV Neut # (Auto) Lymph # (Auto) [place] # (Auto) Eos # (Auto) Baso # (Auto) Absolute Nucleated RBC Nucleated RBC % Sodium Potassium Chloride Carbon Dioxide Anion Gap BUN Creatinine Estimated GFR (MDRD) Glucose Calcium Total Bilirubin AST ALT Alkaline Phosphatase Total Protein Albumin Globulin Albumin/Globulin Ratio Lipase TSH 1.28 Urine Color Urine Clarity Urine pH Ur Specific [place] Urine Protein Urine Glucose (UA) Urine Ketones Urine Occult Blood Urine Nitrite Urine Bilirubin Urine Urobilinogen Ur Leukocyte Esterase Urine RBC Urine WBC Ur Squamous Epith Cells Urine Bacteria Ur Microscopic Review Urine Culture Comments Salicylates Urine Opiates Screen Ur Oxycodone Screen Urine Methadone Screen Ur Propoxyphene Screen Acetaminophen Ur Barbiturates Screen Ur Tricyclics Screen Ur Phencyclidine Scrn Ur Amphetamine Screen U Methamphetamines Scrn U Benzodiazepines Scrn Urine Cocaine Screen U Cannabinoids Screen Ethyl Alcohol PD MEDICAL DECISION MAKING - ED course Complexity details: reviewed old records, reviewed results, re-evaluated patient, considered differential, d/w patient ED course: 69 y/o female with history of bipolar disease is manic with psychotic features. A second electrocardiogram has been evaluated, shows a QTc interval of 462 at 08:39 today and she is medically cleared for transport and psychiatric treatment. Departure - Departure Disposition: 65 Psych Hosp/Unit DC/Xfer Clinical Impression: Paranoia Bipolar disorder, manic Qualifiers: Current episode severity: severe Psychotic features: with psychotic features Qualified Code(s): F31.2 - Bipolar disorder, current episode manic severe with psychotic features Condition: Stable Prescriptions: Aspirin 81 mg PO DAILY #7 tab.chew lamoTRIgine [Lamotrigine] 25 mg PO BID #14 tab Atorvastatin [Lipitor] 40 mg ORAL DAILY #7 tab Omeprazole 40 mg PO DAILY #14 tab Lisinopril [Prinivil] 10 mg PO DAILY #7 tablet QUEtiapine [SEROquel] 100 mg PO QPM #7 tab QUEtiapine [SEROquel] 25 mg PO DAILY #7 tab Levothyroxine [Synthroid] 75 mcg PO QDAC #7 tablet Trazodone HCl 150 mg PO QPM #7 tab Sertraline [Zoloft] 75 mg PO DAILY #21 tab
[2019-11-27 15:05] VITALS: BP 123/87
[2019-11-27] MEDS ORDERED: SERTRALINE 50 MG TABLET ONE (19:34)
== END 2019-11-27 19:37 ==
LOC: EDUNIT# → EDBD → ED 13:00
DX: F31.2 Bipolar disorder, current episode manic severe with psychotic features (principal); R94.31 Abnormal electrocardiogram [ECG] [EKG]; I10 Essential (primary) hypertension; Z79.82 Long term (current) use of aspirin
CPT/HCPCS: 36415; 80053; 81001; 83690; 84443; 85025; 93005; 99283; 99285; A9270; G0425; 80306; 80307; 80320; 80329; 81003; 87086

== ENCOUNTER 2019-12-02 20:20 | Outpatient (CLI) | payer MEDICARE | END 2019-12-02 23:59 | disposition critical access hospital (66) | LOC: EMS 20:20 | PROVIDERS: ATTEND Surgery | DX: M79.601 Pain in right arm (principal) | CPT/HCPCS: A0425; A0429 ==

== ENCOUNTER 2019-12-02 20:29 | Emergency (ER) | payer MEDICARE ==
--- NOTE | 2019-12-02 20:44 | ED Physician Documentation ---
History of Present Illness - Stated complaint Stated Complaint: MHE - Chief complaint Chief Complaint: MHE - History obtained from History obtained from: Patient (Patient is a 69-year-old female who got into an argument with her family tonight and presents to the emergency department via ambulance. She denies any homicidal or suicidal thoughts denies any auditory or visual hallucinations.) Review of Systems Constitutional: reports: Reviewed and negative Eyes: reports: Reviewed and negative Ears: reports: Reviewed and negative Nose: reports: Reviewed and negative Throat: reports: Reviewed and negative Cardiac: reports: Reviewed and negative Respiratory: reports: Reviewed and negative GI: reports: Reviewed and negative : reports: Reviewed and negative Skin: reports: Reviewed and negative Musculoskeletal: reports: Reviewed and negative Neurologic: reports: Reviewed and negative Psychiatric: reports: Reviewed and negative Endocrine: reports: Reviewed and negative Immunocompromised: reports: Reviewed and negative PD PAST MEDICAL HISTORY - Past Medical History Cardiovascular: Hypertension, High cholesterol, Other Respiratory: Sleep apnea, Other Endocrine/Autoimmune: HyPOthyroidism GI: GERD, Hiatal hernia : None HEENT: None Psych: Depression, Anxiety, Bipolar disorder, Panic attacks, Post traumatic stress disorder Musculoskeletal: Osteoarthritis, Chronic back pain Derm: Other - Past Surgical History Past Surgical History: Yes General: Appendectomy, Colonoscopy, EGD Ortho: Knee replacement, 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 surgery /[employer]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: Hysterectomy HEENT: Tonsil/Adenoidectomy - Present Medications Home Medications: Ambulatory Orders Medication Instructions Recorded Confirmed Aspirin [Aspir 81] 81 mg PO DAILY 10/07/12 05/10/17 Levothyroxine Sodium [Levothroid] 75 mcg PO DAILY 10/07/12 11/17/19 Simvastatin [Zocor] 40 mg PO QPM 10/07/12 11/17/19 Lisinopril 10 mg PO DAILY 01/12/14 11/17/19 Aspirin 81 mg PO DAILY #7 tab.chew 11/27/19 Atorvastatin [Lipitor] 40 mg ORAL DAILY #7 tab 11/27/19 Levothyroxine [Synthroid] 75 mcg PO QDAC #7 tablet 11/27/19 Lisinopril [Prinivil] 10 mg PO DAILY #7 tablet 11/27/19 Omeprazole 40 mg PO DAILY #14 tab 11/27/19 QUEtiapine [SEROquel] 25 mg PO DAILY #7 tab 11/27/19 QUEtiapine [SEROquel] 100 mg PO QPM #7 tab 11/27/19 Sertraline [Zoloft] 75 mg PO DAILY #21 tab 11/27/19 Trazodone HCl 150 mg PO QPM #7 tab 11/27/19 lamoTRIgine [Lamotrigine] 25 mg PO BID #14 tab 11/27/19 - Allergies Allergies/Adverse Reactions: Allergies Allergy/AdvReac Type Severity Reaction Status Date / Time oxycodone [Oxycodone] Allergy Intermediate Itching Verified 12/02/19 20:40 codeine [Codeine] AdvReac Mild Nausea Verified 12/02/19 20:40 - Social History Does the pt smoke?: No Smoking Status: Never smoker Does the pt drink ETOH?: Yes Does the pt have substance abuse?: No - Immunizations Immunizations are current?: Yes - POLST Patient has POLST: No PD ED PE NORMAL - Vitals Vital signs reviewed: Yes - General General: Alert and oriented X 3, No acute distress - HEENT HEENT: PERRL - Neck Neck: Supple, no meningeal sign - Cardiac Cardiac: RRR, No murmur - Respiratory Respiratory: Clear bilaterally - Abdomen Abdomen: Normal bowel sounds, Soft, Non tender, Non distended - Derm Derm: Warm and dry - Extremities Extremities: No deformity - Neuro Neuro: Alert and oriented X 3 - Psych Psych: Normal mood, Normal affect Results - Vitals Vitals: Vital Signs - 24 hr 12/02/19 12/02/19 12/02/19 20:30 20:51 22:00 Temperature 37.0 C Heart Rate 73 74 Respiratory 18 17 Rate Blood Pressure 153/76 H 125/73 O2 Saturation 98 99 12/03/19 12/03/19 01:02 02:36 Temperature Heart Rate 70 Respiratory 16 14 Rate Blood Pressure 100/46 L O2 Saturation 98 Oxygen O2 Source [With Activity] Nasal cannula O2 Source [Without Activity] Nasal cannula O2 Source Room air - Labs Labs: Laboratory Tests 12/02/19 22:00 Urine Opiates Screen NEGATIVE Ur Oxycodone Screen NEGATIVE Urine Methadone Screen NEGATIVE Ur Propoxyphene Screen NEGATIVE Ur Barbiturates Screen NEGATIVE Ur Tricyclics Screen POSITIVE H Ur Phencyclidine Scrn NEGATIVE Ur Amphetamine Screen NEGATIVE U Methamphetamines Scrn NEGATIVE U Benzodiazepines Scrn POSITIVE H Urine Cocaine Screen NEGATIVE U Cannabinoids Screen POSITIVE H PD MEDICAL DECISION MAKING - ED course Complexity details: reviewed results, re-evaluated patient, considered differential (Adjustment disorder, acute stress reaction, bipolar disorder), d/w patient Departure - Departure Disposition: 01 Home, Self Care Clinical Impression: Bipolar disorder, current episode manic without psychotic features Condition: Stable Instructions: Bipolar Disorder Follow-Up: your, doctor [Other] - 12/03/19 Gerardo Reed MD [Provider Admit Priv/Credential] - 12/03/19 Comments: Follow-up with your primary care provider and/or your mental health provider today.
[2019-12-02 22:06] LABS: MUDS CUTOFF CONCENTRATIONS CUTOFF CONC BELOW:
[2019-12-02 22:20] LABS: AMPHETAMINE SCREEN,URINE NEGATIVE (NEGATIVE); BENZODIAZEPINES SCREEN, URINE POSITIVE (NEGATIVE); COCAINE SCREEN URINE NEGATIVE (NEGATIVE); METHADONE SCREEN, URINE NEGATIVE (NEGATIVE); METHAMPHETAMINES SCREEN, URINE NEGATIVE (NEGATIVE); OPIATE SCREEN, URINE NEGATIVE (NEGATIVE); OXYCODONE SCREEN, URINE NEGATIVE (NEGATIVE); PROPOXYPHENE SCREEN, URINE NEGATIVE (NEGATIVE); TRICYCLIC ANTIDEPRESSANT,URINE POSITIVE (NEGATIVE)
[2019-12-03] MEDS ORDERED: ACETAMINOPHEN 325 MG TABLET PO STA (02:35)
[2019-12-03] MEDS ORDERED: LORazepam 0.5 MG TABLET PO STA (03:23)
[2019-12-03 05:59] VITALS: BP 104/55
== END 2019-12-03 05:58 | disposition home or self-care (01) ==
LOC: EDUNIT# → ED 20:29
DX: F31.10 Bipolar disorder, current episode manic without psychotic features, unspecified (principal); F43.10 Post-traumatic stress disorder, unspecified; I10 Essential (primary) hypertension; Z79.82 Long term (current) use of aspirin
CPT/HCPCS: 80306; 99283; A9270

== ENCOUNTER 2020-01-30 08:45 | Outpatient (CLI) | payer MEDICARE ==
--- NOTE | 2020-01-30 09:47 | Ultrasound Report ---
PROCEDURE: Abdomen Limited INDICATIONS: ABD PAIN TECHNIQUE: Real-time scanning was performed of the abdominal and retroperitoneal organs, with image documentatio n. COMPARISON: None. FINDINGS: Liver: Liver is normal in size with steatosis. Gallbladder: Gallbladder demonstrates no stones. Wall thickening is within normal limits measuring 2 mm. Biliary ducts: Intrahepatic bile ducts are non-dilated. Extrahepatic bile duct caliber measures 5 m m. Normal is 6-7 mm or less in diameter, or 10 mm or less post-cholecystectomy. Pancreas: Visualized portions of the pancreas there is a hypoechoic focus appearing to be within the pancreatic body measuring 8 x 6 x 9 mm. Kidneys: Kidneys are normal in size and echotexture. Right kidney measures 9.5 cm long. No hydrone phrosis or nephrolithiasis. No solid masses. IVC: Intrahepatic inferior vena cava is patent. Miscellaneous: No free abdominal fluid. IMPRESSION: 1. Hypoechoic focus appearing to be within the pancreatic body. It is not well characterized on CT e xam of 10/04/19, Further evaluation with pancreatic protocol CT is recommended. Reviewed by: Dinorah Andersen MD on 01/30/2020 9:46 AM PDT Approved by: Dinorah Andersen MD on 01/30/2020 9:46 AM PDT Station ID: [id number]
== END 2020-01-30 08:46 | disposition home or self-care (01) ==
LOC: DI 08:45
PROVIDERS: ATTEND Student in an Organized Health Care Education/Training Program
DX: R93.3 Abnormal findings on diagnostic imaging of other parts of digestive tract (principal)
CPT/HCPCS: 76705

== ENCOUNTER 2020-03-07 10:25 | Outpatient (CLI) | payer MEDICARE ==
[2020-03-07] MEDS ORDERED: IOVERSOL 320 50 ML VIAL ONE (10:44)
[2020-03-07] MEDS ORDERED: IOVERSOL 320 100 ML VIAL IVP ONE ×2 (10:44→11:43)
[2020-03-07] MEDS ORDERED: IOVERSOL 320 50 ML VIAL PO ONE (11:43)
--- NOTE | 2020-03-07 15:18 | CT Report ---
PROCEDURE: Abdomen/Pelvis W INDICATIONS: RUQ ABD PAIN, UNINTENTIONAL WEIGHT LOSS, ESOPHAGEA CONTRAST: IV CONTRAST: Optiray 320 ml: 100 PO CONTRAST: Optiray 320 ml50 TECHNIQUE: After the administration of nonionic contrast, 5 mm thick sections acquired from the diaphragms to th e symphysis. 5 mm thick coronal and sagittal reformats were acquired. For radiation dose reduction, the following was used: automated exposure control, adjustment of mA and/or kV according to patient size. COMPARISON: None. FINDINGS: Image quality: Excellent. ABDOMEN: Lung bases: Lung bases are clear. Heart size is normal. Solid organs: Liver and spleen are normal in size and enhancement. Gallbladder appears partially co ntracted. Biliary system is non dilated. Pancreas enhances normally. No adrenal nodules. Kidneys demonstrate normal size and enhancement, without hydronephrosis. Peritoneum and bowel: Bowel loops demonstrate normal wall thickness and caliber. No free fluid or a ir. Nodes and vessels: No retroperitoneal or mesenteric adenopathy by size criteria. Aorta and inferior vena cava are normal in size. Miscellaneous: No ventral hernias. PELVIS: Genitourinary: Bladder wall thickness is normal. Apparent prior hysterectomy. Miscellaneous: No inguinal hernias or adenopathy. Bones: No suspicious bony lesions. No vertebral body compression fractures. IMPRESSION: Prior hysterectomy, no inflammatory or neoplastic process is seen. A source of current p ain is not identified. Reviewed by: Keo Marrero MD on 03/07/2020 3:16 PM PDT Approved by: Keo Marrero MD on 03/07/2020 3:16 PM PDT Station ID: [id number]
== END 2020-03-07 10:26 | disposition home or self-care (01) ==
LOC: DI 10:25
PROVIDERS: ATTEND Student in an Organized Health Care Education/Training Program
DX: R10.11 Right upper quadrant pain (principal); R63.4 Abnormal weight loss; R13.14 Dysphagia, pharyngoesophageal phase
CPT/HCPCS: 74177; Q9967

== ENCOUNTER 2020-03-25 12:23 | Outpatient (CLI) | payer MEDICARE ==
[2020-03-25] MEDS ORDERED: IOVERSOL 320 100 ML VIAL IVP ONE ×2 (14:08→16:05)
--- NOTE | 2020-03-25 17:28 | CT Report ---
PROCEDURE: CHEST W INDICATIONS: ESOPHAGEAL DYSMOTILITY - EGJ OUTFLOW OBSTRUCTION CONTRAST: IV CONTRAST: Optiray 320 ml: 100 PO CONTRAST: *NO PO CONTRAST TECHNIQUE: After the administration of intravenous contrast, 5 mm thick sections acquired from the pulmonary api tona to the posterior costophrenic angles. 7 mm thick coronal MIP reformats were acquired. For radia tion dose reduction, the following was used: automated exposure control, adjustment of mA and/or kV according to patient size. COMPARISON: None FINDINGS: Image quality: Excellent. Lungs and pleura: 2 mm pulmonary nodule, posterior left lung base, image 160/4. No acute air space o pacities. No pleural effusions or pneumothorax. Central and peripheral airways are patent and fabian l in caliber. Mediastinum: Heart size is normal. No pericardial effusion. Left atrial enlargement. No mediastina l or hilar adenopathy by size criteria. Thoracic aorta and central pulmonary arteries are normal in size. Esophagus is normal in caliber. No hiatal hernia. Bones and chest wall: No suspicious bony lesions. No vertebral body compression fractures. No axil irma or supraclavicular adenopathy by size criteria. Thyroid gland is unremarkable as visualized. Abdomen: Visualized upper abdominal solid organs appear normal. Upper abdominal bowel loops are nor mal in caliber. IMPRESSION: 1. No obvious esophageal mass. Recommend correlation to previous endoscopy. 2. Tiny, 2 mm left pulmonary nodule, statistically likely to be benign. 3. Left atrial enlargement. 4. Otherwise unremarkable study. Reviewed by: Ajay Thibodeaux MD on 03/25/2020 5:27 PM PST Approved by: Ajay Thibodeaux MD on 03/25/2020 5:27 PM PST Station ID: [id number]
== END 2020-03-25 12:24 | disposition home or self-care (01) ==
LOC: DI 12:23
PROVIDERS: ATTEND Student in an Organized Health Care Education/Training Program
DX: K22.4 Dyskinesia of esophagus (principal); R13.14 Dysphagia, pharyngoesophageal phase; R91.1 Solitary pulmonary nodule; I51.7 Cardiomegaly
CPT/HCPCS: 71260; Q9967

== ENCOUNTER 2020-06-21 08:41 | Outpatient (CLI) | payer MEDICARE ==
[2020-06-21] MEDS ORDERED: SINCALIDE 5 MCG VIAL ONE (10:55)
[2020-06-21] MEDS ORDERED: SODIUM CHLORIDE 0.9% IV ONE (12:55)
[2020-06-21] MEDS ORDERED: SINCALIDE IV ONE (12:55)
--- NOTE | 2020-06-21 12:55 | Nuclear Medicine Report ---
PROCEDURE: Hepatobiliary HIDA w/ Rx INDICATIONS: ABD PAIN RADIOPHARMACEUTICAL: 5.25 mCi Tc-99m mebrofenin i.v. and 1.36 ?g sincalide i.v. TECHNIQUE: Following intravenous administration of Tc-99m mebrofenin, sequential anterior abdominal images were obtained through 120 minutes. To evaluate the contractile response of the gallbladder in response to Cholecystokinin (CCK), 1.36 microgram sincalide (0.02 ?g/kg) was administered by slow in travenous infusion approximately 60 minutes after the administration of the radiopharmaceutical. Seq uential imaging was continued for 30 minutes after the start of CCK infusion. Gallbladder ejection f raction was calculated. COMPARISON: None. FINDINGS: Biliary scan: There is normal tracer uptake and excretion by the liver. There is normal visualizati on of the intrahepatic ducts, common bile duct, and gallbladder. There is normal tracer transit into the duodenum. CCK stimulation: There is normal contractile response of the gallbladder to CCK infusion. The calcu lated gallbladder ejection fraction is 79%; normal values are above 35%. IMPRESSION: 1. Normal biliary imaging study. 2. Normal contractile response of gallbladder to CCK infusion.. Reviewed by: Gorge Stevens MD on 06/21/2020 12:54 PM PST Approved by: Gorge Stevens MD on 06/21/2020 12:54 PM PST Station ID: [id number]
== END 2020-06-21 08:42 | disposition home or self-care (01) ==
LOC: DI 08:41
PROVIDERS: ATTEND Student in an Organized Health Care Education/Training Program
DX: R10.11 Right upper quadrant pain (principal)
CPT/HCPCS: 78227; J7040

== ENCOUNTER 2020-07-04 10:00 | Emergency (ER) | payer MEDICARE ==
[2020-07-04] MEDS ORDERED: ACETAMINOPHEN 325 MG TABLET PO STA (10:12)
--- NOTE | 2020-07-04 10:53 | XRAY Report ---
PROCEDURE: Shoulder 2 View RT INDICATIONS: shoulder pain TECHNIQUE: 2 views of the shoulder were acquired. COMPARISON: None. FINDINGS: Bones: No visible fractures or dislocations. No suspicious bony lesions. Visualized ribs appear in tact. Moderate degenerative changes at the acromial clavicular joint. Soft tissues: No suspicious soft tissue calcifications. IMPRESSION: 1. No visible fracture or dislocation. 2. AC joint degeneration. Reviewed by: Elvie Crow MD on 07/04/2020 9:51 AM [facility] Approved by: Elvie Crow MD on 07/04/2020 9:51 AM [facility] Station ID: [id number]
--- NOTE | 2020-07-04 10:54 | XRAY Report ---
PROCEDURE: Chest 2 View X-Ray INDICATIONS: R chest wall pain TECHNIQUE: 2 view(s) of the chest. COMPARISON: None. FINDINGS: Surgical changes and devices: None. Lungs and pleura: No pleural effusions or pneumothorax. Lungs are clear. Mediastinum: Mediastinal contours are normal. Heart size is normal. Bones and chest wall: No suspicious bony abnormalities. No visible rib fractures Multilevel degenera tive disc and endplate changes throughout the thoracic spine but no visible thoracic vertebral body f ractures. Soft tissues appear unremarkable. IMPRESSION: No visible rib or vertebral body fractures. No secondary signs of underlying chest traum a. Reviewed by: Elvie Crow MD on 07/04/2020 9:53 AM [facility] [place] Approved by: Elvie Crow MD on 07/04/2020 9:53 AM [facility] [place] Station ID: [id number]
[2020-07-04] MEDS ORDERED: KETOROLAC 30 MG/ML VIAL IM STA (11:34)
--- NOTE | 2020-07-04 12:37 | ED Physician Documentation ---
History of Present Illness - Stated complaint Stated Complaint: RT ARM INJURY - Chief complaint Chief Complaint: General - History obtained from History obtained from: Patient - Additonal information Additional information: 70-year-old woman p/w shoulder pain after falling in the snow onto it yesterday. Pain was sudden onset, aching, initially mild and then worsening to moderate pain, associated with inability to lift above 90 degrees, worse with range of motion. Patient denies head trauma or other injury. Denies loss of sensation or movement in the extremity. Review of Systems Skin: denies: Abrasion (s) Musculoskeletal: reports: Joint pain Neurologic: denies: Focal weakness, Numbness PD PAST MEDICAL HISTORY - Past Medical History Past Medical History: Yes Cardiovascular: Hypertension, High cholesterol, Other Respiratory: Sleep apnea, Other Endocrine/Autoimmune: HyPOthyroidism GI: GERD, Hiatal hernia : None HEENT: None Psych: Depression, Anxiety, Bipolar disorder, Panic attacks, Post traumatic stress disorder Musculoskeletal: Osteoarthritis, Chronic back pain Derm: Other - Past Surgical History Past Surgical History: Yes General: Appendectomy, Colonoscopy, EGD Ortho: Knee replacement, 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 surgery /[employer]: Hysterectomy HEENT: Tonsil/Adenoidectomy - Present Medications Home Medications: Ambulatory Orders Medication Instructions Recorded Confirmed Aspirin [Aspir 81] 81 mg PO DAILY 10/07/12 07/04/20 Levothyroxine Sodium [Levothroid] 75 mcg PO DAILY 10/07/12 07/04/20 Simvastatin [Zocor] 40 mg PO QPM 10/07/12 07/04/20 Lisinopril 10 mg PO DAILY 01/12/14 07/04/20 Aspirin 81 mg PO DAILY #7 tab.chew 11/27/19 07/04/20 Atorvastatin [Lipitor] 40 mg ORAL DAILY #7 tab 11/27/19 07/04/20 Levothyroxine [Synthroid] 75 mcg PO QDAC #7 tablet 11/27/19 07/04/20 Lisinopril [Prinivil] 10 mg PO DAILY #7 tablet 11/27/19 07/04/20 Omeprazole 40 mg PO DAILY #14 tab 11/27/19 07/04/20 QUEtiapine [SEROquel] 25 mg PO DAILY #7 tab 11/27/19 07/04/20 QUEtiapine [SEROquel] 100 mg PO QPM #7 tab 11/27/19 07/04/20 Sertraline [Zoloft] 75 mg PO DAILY #21 tab 11/27/19 07/04/20 Trazodone HCl 150 mg PO QPM #7 tab 11/27/19 07/04/20 lamoTRIgine [Lamotrigine] 25 mg PO BID #14 tab 11/27/19 07/04/20 - Allergies Allergies/Adverse Reactions: Allergies Allergy/AdvReac Type Severity Reaction Status Date / Time oxycodone [Oxycodone] Allergy Intermediate Itching Verified 07/04/20 10:06 codeine [Codeine] AdvReac Mild Nausea Verified 07/04/20 10:06 - Social History Does the pt smoke?: No Smoking Status: Never smoker Does the pt drink ETOH?: Yes Does the pt have substance abuse?: No - Immunizations Immunizations are current?: Yes - POLST Patient has POLST: No PD ED PE NORMAL - Vitals Vital signs reviewed: Yes - General General: Alert and oriented X 3, No acute distress - HEENT HEENT: Atraumatic, PERRL, EOMI - Neck Neck: No bony TTP - Extremities Extremities: Other (Diminished range of motion of right shoulder, improved status post Toradol.2+ radial pulse and capillary refill of the right upper extremity with intact sensation and movement.) Results - Vitals Vitals: Vital Signs - 24 hr 07/04/20 07/04/20 10:04 12:45 Temperature 36.4 C L 36.6 C Heart Rate 70 53 L Respiratory 18 18 Rate Blood Pressure 146/95 H 151/74 H O2 Saturation 99 100 Oxygen O2 Source [With Activity] Nasal cannula O2 Source [Without Activity] Nasal cannula O2 Source Room air PD MEDICAL DECISION MAKING - ED course ED course: ROM improved s/p toradol. patient states she has kidney disease so will take tylenol at home for pain. discussed return precautions. she will f/u with orthopedics in 1 week if no improvement. Departure - Departure Disposition: 01 Home, Self Care Clinical Impression: Shoulder pain, Fall from standing Condition: Good Instructions: ED Strain Muscle Ext, ED RICE Comments: You were seen in the emergency department for shoulder pain. Your x-rays are not showing a break in the bone, but sometimes they can miss breaks so you should get follow-up x-rays in 1 week with orthopedics. Return to the emergency department if you have any new or worsening symptoms or other concerns. Discharge Date/Time: 07/04/20 12:56
[2020-07-04 12:47] VITALS: BP 151/74
== END 2020-07-04 12:56 | disposition home or self-care (01) ==
LOC: ED 10:00
DX: M25.511 Pain in right shoulder (principal); W00.0XXA Fall on same level due to ice and snow, initial encounter; M19.011 Primary osteoarthritis, right shoulder; I10 Essential (primary) hypertension; Z79.82 Long term (current) use of aspirin
CPT/HCPCS: 71046; 73030; 96372; 99282; 99283; A9270

== ENCOUNTER 2020-08-22 17:07 | Inpatient (IN) | payer MEDICARE ==
[2020-08-22] MEDS ORDERED: IPRATROPIUM/ALBUTEROL 3 ML NEB INH STA (17:34)
--- NOTE | 2020-08-22 17:35 | ED Physician Documentation ---
History of Present Illness - Stated complaint Stated Complaint: SOA,WEAKNESS - Chief complaint Chief Complaint: General - History obtained from History obtained from: Patient - History of Present Illness Timing: How many days ago (4) Pain level max: 0 Pain level now: 0 - Additonal information Additional information: 70-year-old female states she has had difficulty breathing for the past 4 days. Started after receiving a steroid injection in her right shoulder while on , difficulty breathing started Saturday. Nothing makes it better or worse. Has used inhalers in the past. She states she has a history of bronchitis. She does not smoke, but does smoke marijuana. No fevers. No chills. No cough. No congestion. No weight gain.Patient with an acute distal radius fracture. Placed in a sugar tong splint. Pain well controlled. Neurovascularly intact. We will have her follow-up with orthopedics for further care. Patient counseled regarding signs and symptoms for which I believe and urgent re-evaluation would be necessary. Patient with good understanding of and agreement to plan and is comfortable going home at this time This document was made in part using voice recognition software. While efforts are made to proofread this document, sound alike and grammatical errors may occur. Review of Systems Ten Systems: 10 systems reviewed and negative Constitutional: denies: Fever, Chills Ears: denies: Ear pain Nose: denies: Rhinorrhea / runny nose, Congestion Throat: denies: Sore throat Cardiac: denies: Chest pain / pressure Respiratory: reports: Dyspnea GI: denies: Abdominal Pain, Nausea, Vomiting, Diarrhea : denies: Dysuria Skin: denies: Rash Musculoskeletal: denies: Neck pain, Back pain Neurologic: denies: Headache PD PAST MEDICAL HISTORY - Past Medical History Cardiovascular: Hypertension, High cholesterol, Other Respiratory: Sleep apnea, Other Endocrine/Autoimmune: HyPOthyroidism GI: GERD, Hiatal hernia : None HEENT: None Psych: Depression, Anxiety, Bipolar disorder, Panic attacks, Post traumatic stress disorder Musculoskeletal: Osteoarthritis, Chronic back pain Derm: Other - Past Surgical History Past Surgical History: Yes General: Appendectomy, Colonoscopy, EGD Ortho: Knee replacement, 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 HEENT: Tonsil/Adenoidectomy - Present Medications Home Medications: Ambulatory Orders Medication Instructions Recorded Confirmed Simvastatin [Zocor] 40 mg PO QPM 10/07/12 08/22/20 Atorvastatin [Lipitor] 40 mg ORAL DAILY #7 tab 11/27/19 08/22/20 Levothyroxine [Synthroid] 75 mcg PO QDAC #7 tablet 11/27/19 08/22/20 Lisinopril [Prinivil] 10 mg PO DAILY #7 tablet 11/27/19 08/22/20 Omeprazole 40 mg PO DAILY #14 tab 11/27/19 08/22/20 QUEtiapine [SEROquel] 25 mg PO DAILY #7 tab 11/27/19 08/22/20 QUEtiapine [SEROquel] 100 mg PO QPM #7 tab 11/27/19 08/22/20 Sertraline [Zoloft] 75 mg PO DAILY #21 tab 11/27/19 08/22/20 lamoTRIgine [Lamotrigine] 25 mg PO BID #14 tab 11/27/19 08/22/20 - Allergies Allergies/Adverse Reactions: Allergies Allergy/AdvReac Type Severity Reaction Status Date / Time oxycodone [Oxycodone] Allergy Intermediate Itching Verified 08/22/20 17:15 codeine [Codeine] AdvReac Mild Nausea Verified 08/22/20 17:15 - Social History Does the pt smoke?: No Smoking Status: Never smoker Does the pt drink ETOH?: Yes Does the pt have substance abuse?: Yes Substance Use and Type: Marijuana - Immunizations Immunizations are current?: Yes - POLST Patient has POLST: No PD ED PE NORMAL - Vitals Vital signs reviewed: Yes - General General: Alert and oriented X 3, No acute distress, Well developed/nourished - HEENT HEENT: PERRL, Moist mucous membranes - Neck Neck: Supple, no meningeal sign - Cardiac Cardiac: RRR, Strong equal pulses - Respiratory Respiratory: Other (Diminished breath sounds, crackles and mild wheezing bilaterally) - Abdomen Abdomen: Soft, Non tender, Non distended - Back Back: No spinal TTP - Derm Derm: Warm and dry - Extremities Extremities: No edema - Neuro Neuro: Alert and oriented X 3 - Psych Psych: Normal mood, Normal affect Results - Vitals Vitals: Vital Signs - 24 hr 08/22/20 08/22/20 08/22/20 17:16 17:34 17:53 Temperature 36.5 C Heart Rate 94 85 91 Respiratory 16 22 33 H Rate Blood Pressure 178/78 H 150/100 H 153/77 H O2 Saturation 82 L 97 91 L 08/22/20 08/22/20 08/22/20 17:56 17:57 18:02 Temperature Heart Rate 95 88 Respiratory 32 H 31 H Rate Blood Pressure 139/97 H O2 Saturation 93 94 08/22/20 08/22/20 18:14 18:20 Temperature Heart Rate Respiratory Rate Blood Pressure O2 Saturation 99 96 Oxygen O2 Source [With Activity] Nasal cannula O2 Source [Without Activity] Nasal cannula O2 Source Nasal cannula Oxygen Flow Rate 5 - Labs Labs: Laboratory Tests 08/22/20 08/22/20 08/22/20 17:40 17:40 17:40 WBC 19.7 H RBC 4.71 Hgb 13.3 Hct 40.3 MCV 85.6 MCH 28.2 MCHC 33.0 RDW 12.9 Plt Count 382 MPV 9.7 Neut # (Auto) 16.2 H Lymph # (Auto) 1.8 Placer # (Auto) 1.3 H Eos # (Auto) 0.2 Baso # (Auto) 0.1 Absolute Nucleated RBC 0.00 Nucleated RBC % 0.0 Sodium 135 Potassium 2.7 L Chloride 96 L Carbon Dioxide 26 Anion Gap 13.0 BUN 13 Creatinine 0.7 Estimated GFR (MDRD) 82 L Glucose 106 H Calcium 8.5 Total Bilirubin 0.7 AST 19 ALT 18 Alkaline Phosphatase 100 B-Natriuretic Peptide 277 H Total Protein 7.3 Albumin 3.4 Globulin 3.9 Albumin/Globulin Ratio 0.9 L Nasal Adenovirus (PCR) Nasal B. parapertussis DNA (PCR) Nasal Coronavir 229E PCR Nasal Coronavir HKU1 PCR Nasal Coronavir NL63 PCR Nasal Coronavir OC43 PCR Nasal Enterovir/Rhinovir PCR Nasal Influenza B PCR Nasal Influenza A PCR Nasal Parainfluen 1 PCR Nasal Parainfluen 2 PCR Nasal Parainfluen 3 PCR Nasal Parainfluen 4 PCR Nasal RSV (PCR) Nasal B.pertussis DNA PCR Nasal C.pneumoniae (PCR) José Luis Human Metapneumo PCR Nasal M.pneumoniae (PCR) Nasal SARS-CoV-2 (PCR) 08/22/20 17:50 WBC RBC Hgb Hct MCV MCH MCHC RDW Plt Count MPV Neut # (Auto) Lymph # (Auto) Placer # (Auto) Eos # (Auto) Baso # (Auto) Absolute Nucleated RBC Nucleated RBC % Sodium Potassium Chloride Carbon Dioxide Anion Gap BUN Creatinine Estimated GFR (MDRD) Glucose Calcium Total Bilirubin AST ALT Alkaline Phosphatase B-Natriuretic Peptide Total Protein Albumin Globulin Albumin/Globulin Ratio Nasal Adenovirus (PCR) NOT DETECTED Nasal B. parapertussis DNA (PCR) NOT DETECTED Nasal Coronavir 229E PCR NOT DETECTED Nasal Coronavir HKU1 PCR NOT DETECTED Nasal Coronavir NL63 PCR NOT DETECTED Nasal Coronavir OC43 PCR NOT DETECTED Nasal Enterovir/Rhinovir PCR NOT DETECTED Nasal Influenza B PCR NOT DETECTED Nasal Influenza A PCR NOT DETECTED Nasal Parainfluen 1 PCR NOT DETECTED Nasal Parainfluen 2 PCR NOT DETECTED Nasal Parainfluen 3 PCR NOT DETECTED Nasal Parainfluen 4 PCR NOT DETECTED Nasal RSV (PCR) NOT DETECTED Nasal B.pertussis DNA PCR NOT DETECTED Nasal C.pneumoniae (PCR) NOT DETECTED José Luis Human Metapneumo PCR NOT DETECTED Nasal M.pneumoniae (PCR) NOT DETECTED Nasal SARS-CoV-2 (PCR) NOT DETECTED - Rads (name of study) Chest x-ray Radiology: Prelim report reviewed, EMP read contemporaneously, See rad report (Finding is concerning for pneumonitis and bilateral patchy infiltrates.) PD MEDICAL DECISION MAKING - ED course Complexity details: reviewed results, re-evaluated patient, considered differential, d/w patient ED course: 70-year-old female with pneumonitis and bilateral patchy infiltrates. Leukocytosis. Concern for pneumonia. Given Rocephin and azithromycin. Blood cultures drawn. Covid test negative. She is still hypoxic and requiring supplemental O2. Does not use O2 at home. Given DuoNeb treatment as well. We will admit for further care. Discussed the case with Dr. Ruiz, hospitalist who accepts This document was made in part using voice recognition software. While efforts are made to proofread this document, sound alike and grammatical errors may o ccur. Departure - Departure Disposition: 66 [facility] DC/Xfer Clinical Impression: Hypoxia Pneumonia Qualifiers: Pneumonia type: due to unspecified organism Laterality: bilateral Lung location: unspecified part of lung Qualified Code(s): J18.9 - Pneumonia, unspecified organism Condition: Stable Discharge Date/Time: 08/22/20 20:46
--- NOTE | 2020-08-22 17:53 | XRAY Report ---
PROCEDURE: Chest 1 View X-Ray INDICATIONS: chest pain TECHNIQUE: One view of the chest was acquired. COMPARISON: 07/04/2020 FINDINGS: Surgical changes and devices: None. Lungs and pleura: No pleural effusions or pneumothorax. Increased interstitial reticular-nodular den sities are seen with ill-defined opacities seen in left midlung zone and right lower lung zone. Mediastinum: Mediastinal contours appear normal. Heart size is enlarged. Bones and chest wall: No suspicious bony lesions. Overlying soft tissues appear unremarkable. IMPRESSION: 1. Finding is concerning for pneumonitis and bilateral patchy infiltrates. No pleural effusion or pne umothorax. Reviewed by: Job Jon MD on 08/22/2020 5:51 PM PDT Approved by: Job Jon MD on 08/22/2020 5:51 PM PDT Station ID: [id number]
[2020-08-22 17:55] LABS: BASOPHILS # (AUTO) 0.1 10^3/uL (0.0-0.1); BASOPHILS % (AUTO) 0.3 %; EOSINOPHILS # (AUTO) 0.2 10^3/uL (0.0-0.7); HCT - HEMATOCRIT 40.3 % (37.0-47.0); HGB - HEMOGLOBIN 13.3 g/dL (12.0-16.0); LYMPHOCYTES # (AUTO) 1.8 10^3/uL (1.5-3.5); LYMPHOCYTES % (AUTO) 9.2 %; MEAN CORPUSCULAR HEMOGLOBIN 28.2 pg (27.0-31.0); MEAN CORPUSCULAR VOLUME 85.6 fL (81.0-99.0); MEAN PLATELET VOLUME 9.7 fL (7.9-10.8); MONOCYTES # (AUTO) 1.3 10^3/uL (0.0-1.0); MONOCYTES % (AUTO) 6.6 %; NEUTROPHILS # (AUTO) 16.2 10^3/uL (1.5-6.6); NEUTROPHILS % (AUTO) 82.3 %; PLT - PLATELET COUNT 382 10^3/uL (130-450); RED BLOOD COUNT 4.71 10^6/uL (4.20-5.40); RED CELL DISTRIBUTION WIDTH 12.9 % (12.0-15.0); WHITE BLOOD COUNT 19.7 x10^3/uL (4.8-10.8)
[2020-08-22 18:03] LABS: ALBUMIN 3.4 g/dL (3.2-5.5); ALBUMIN/GLOBULIN RATIO 0.9 (1.0-2.2); BILIRUBIN,TOTAL 0.7 mg/dL (0.2-1.0); CALCIUM 8.5 mg/dL (8.5-10.3); CREATININE 0.7 mg/dL (0.4-1.0); POTASSIUM 2.7 mmol/L (3.5-5.0); TOTAL PROTEIN 7.3 g/dL (6.7-8.2)
[2020-08-22 19:40] LABS: B. PARAPERTUSSIS- RESP PCR PAN NOT DETECTED; B. PERTUSSIS- RESP PCR PANEL NOT DETECTED; C. PNEUMONIAE- RESP PCR PANEL NOT DETECTED; CORONAVIRUS 229E-RESP PCR NOT DETECTED; CORONAVIRUS HKU1-RESP PCR NOT DETECTED; CORONAVIRUS NL63-RESP PCR NOT DETECTED; CORONAVIRUS OC43-RESP PCR NOT DETECTED; HUMAN METAPNEUMOVIRUS NOT DETECTED; INFLUENZA A- RESP PCR PANEL NOT DETECTED; INFLUENZA B - RESP PCR PANEL NOT DETECTED; PARAINFLUENZA VIRUS 1 NOT DETECTED; PARAINFLUENZA VIRUS 2 NOT DETECTED; PARAINFLUENZA VIRUS 3 NOT DETECTED; PARAINFLUENZA VIRUS 4 NOT DETECTED; RHINOVIRUS/ENTEROVIRUS NOT DETECTED; RSV- RESP PCR PANEL NOT DETECTED; SARS-CoV-2 -RESP PCR PANEL NOT DETECTED
[2020-08-22 19:41] LABS: M. PNEUMONIAE- RESP PCR PANEL NOT DETECTED
[2020-08-22] MEDS ORDERED: AZITHROMYCIN INJ 500 MG in SODIUM CHLORIDE 0.9% 250 ML IV STA (19:46)
[2020-08-22] MEDS ORDERED: cefTRIAXone 1 GM VIAL IVP STA (19:46)
[2020-08-22] MEDS ORDERED: ONDANSETRON ODT 4 MG TABLET TL PRN (19:48)
--- NOTE | 2020-08-22 19:58 | HISTORY & PHYSICAL EXAMINATION ---
Chief Complaint - Chief Complaint Chief Complaint: Shortness of breath History of Present Illness - Admitted From Admitted From:: Home - History Obtained From Records Reviewed: Yes History obtained from: Patient, ER Physician, EMR. - History of Present Illness HPI Comment/Other: This is a 70-year-old female with a past medical history significant for bipolar disorder, hypertension, hypothyroidism who presents today complaining of worsening shortness of breath. She states her symptoms began late last week and have since progressed. She is normally quite active and independent and due to her dyspnea, she has become more sedentary. She feels short of breath at rest but it is worse with exertion. She has had cough with occasional sputum prod uction that is clear. She reports no fevers or chills. Denies any lower extremity edema. She has chest pain only with deep inspiration. She reports no prior history of pneumonia. She smokes half a pack a day for about 15 years but quit in the 80s. Denies any nasal congestion, sore throat. In the emergency department, she was found to be afebrile with temperature of 36.5 C. Her heart rate was in the 80s. Blood pressure was 150/100. She was not tachypneic. She was saturating 82% on room air and this improved to the 97% on 5 L of oxygen via nasal cannula. Labs were significant for a white count of 19.7 with a left shift and a potassium of 2.7. Chest x-ray revealed bilateral infiltrates. Respiratory PCR panel was negative. She was given azithromycin and ceftriaxone in the emergency department. Given the above findings, medicine was consulted for admission. 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 He later from dementia. Her mother also had heart disease and hypothyroidism. Living arrangement: At home Living Situation: Alone Social History Notes: She lives at home alone although her daughter does live next door. 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 She smoked half a pack a day for 15 years but quit in the early 80s. She does not drink alcohol. - POLST Patient has POLST: No Meds/Allgy - Home Medications Home Medications: Ambulatory Orders Medication Instructions Recorded Confirmed Simvastatin [Zocor] 40 mg PO QPM 10/07/08/22/20 Atorvastatin [Lipitor] 40 mg ORAL DAILY #7 tab 11/27/19 08/22/20 Levothyroxine [Synthroid] 75 mcg PO QDAC #7 tablet 11/27/19 08/22/20 Lisinopril [Prinivil] 10 mg PO DAILY #7 tablet 11/27/19 08/22/20 Omeprazole 40 mg PO DAILY #14 tab 11/27/19 08/22/20 QUEtiapine [SEROquel] 25 mg PO DAILY #7 tab 11/27/19 08/22/20 QUEtiapine [SEROquel] 100 mg PO QPM #7 tab 11/27/19 08/22/20 Sertraline [Zoloft] 75 mg PO DAILY #21 tab 11/27/19 08/22/20 lamoTRIgine [Lamotrigine] 25 mg PO BID #14 tab 11/27/19 08/22/20 - Allergies Allergies/Adverse Reactions: Allergies Allergy/AdvReac Type Severity Reaction Status Date / Time oxycodone [Oxycodone] Allergy Intermediate Itching Verified 08/22/20 17:15 codeine [Codeine] AdvReac Mild Nausea Verified 08/22/20 17:15 Review of Systems - Constitutional Constitutional: reports: Fatigue. denies: Fever, Chills, Malaise, Weight gain - Eyes Eyes: denies: Blurred vision - Ears, Nose & Throat Ears, Nose & Throat: denies: Nasal discharge, Nasal congestion, Sore throat - Cardiovascular Cariovascular: reports: Chest pain (With deep inspiration), Exertional dyspnea, Decr. exercise tolerance. denies: Edema, Lightheadedness - Respiratory Respiratory: reports: Cough, Sputum production, SOB at rest, SOB with exertion - Gastrointestinal Gastrointestinal: reports: Nausea. denies: Abdominal distention, Constipation, Diarrhea, Vomiting - Genitourinary Genitourinary: denies: Dysuria, Frequency, Urgency, Hematuria - Integumentary Integumentary: denies: Rash - Neurological Neurological: denies: General weakness, Focal weakness, Dizziness - Hematologic/Lymphatic Hematologic/Lymphatic: reports: Bruising. denies: Anemia - All Other Systems All Other Systems: reports: Reviewed and negative Prior Level of Functionality: She is independent with her ADLs. Exam - Vital Signs Reviewed Vital Signs: Yes Vital Signs: Vital Signs x48h Temp Pulse Resp BP Pulse Ox 08/22/20 18:20 96 08/22/20 18:14 99 08/22/20 18:02 88 31 H 139/97 H 94 08/22/20 17:57 93 08/22/20 17:56 95 32 H 08/22/20 17:53 91 33 H 153/77 H 91 L 08/22/20 17:34 85 22 150/100 H 97 08/22/20 17:16 36.5 C 94 16 178/78 H 82 L - Physical Exam General Appearance: positive: Alert, Mild distress Eyes Bilateral: positive: Normal inspection, Conjunctivae nml ENT: positive: ENT inspection nml, Other (Nasal cannula in place.) Neck: positive: Nml inspection Respiratory: positive: No respiratory distress, Wheezes (Faint expiratory wheezes.), Rhonchi, Other (She is tachypneic but not in distress.) Cardiovascular: positive: Regular rate & rhythm, No murmur. negative: Tachycardia, Systolic murmur Abdomen: positive: Non-tender, No distention. negative: Tenderness, Guarding, Rebound Skin: positive: Warm, Dry Extremities: positive: Full ROM, No pedal edema Neurologic/Psychiatric: positive: Oriented x3, Motor nml. negative: Disoriented to person, Disoriented to place, Disoriented to time Conclusion/Plan - Problem List (1) Acute respiratory failure with hypoxia Conclusion/Plan: This appears to be secondary to community-acquired pneumonia. She was saturating 82% on room air and is now requiring 4 to 5 L of oxygen to maintain an oxygen saturation in the 90s. Her chest x-ray is consistent with atypical pneumonia/pneumonitis. Respiratory PCR panel is negative. We will place her on IV antibiotics and continue supplemental oxygen. We will look to wean this for goal saturation greater than 92%. Continue with albuterol as needed. (2) Community acquired pneumonia Conclusion/Plan: This appears to be the cause of her acute hypoxic respiratory failure. Her x- ray is consistent with atypical pneumonia/pneumonitis. She has bilateral infiltrates. She does have an elevated white count but does not appear to be septic given she is not tachycardic, no fever, and is hypertensive. A lactic acid is pending. Respiratory PCR panel is negative. We will place her on ceftriaxone and azithromycin IV for community-acquired pneumonia. Continue supplemental oxygen as mentioned above. We will order respiratory culture. Follow-up lactic acid and blood cultures. Trend white count. (3) Hypokalemia Conclusion/Plan: Her potassium is decreased at 2.9. We will replace this orally and check a magnesium. (4) Bipolar disorder Conclusion/Plan: Stable. We will continue her home lamotrigine, Seroquel, Zoloft. (5) Hypertension Conclusion/Plan: She is currently hypertensive with systolic in the 130s. We will continue her home lisinopril. (6) Hypothyroidism Conclusion/Plan: Stable. Continue her home Synthroid. - Lab Results Fish Bones: 08/22/20 17:40 08/22/20 17:40 Core Measures - Anticipated LOS I expect patient to be DC'd or transferred within 96 hours.: Yes - Issues Hospital Issues and Management Plan: 70-year-old female presents with worsening shortness of breath found to have acute hypoxic respiratory failure secondary to community-acquired pneumonia. We will admit for IV azithromycin and ceftriaxone. - DVT/VTE - Prophylaxis VTE/DVT Device ordered at admit?: Yes VTE/DVT Prophylaxis med ordered at admit?: Yes
[2020-08-22] MEDS ORDERED: POTASSIUM CHLORIDE 20 MEQ TABLET PO STA (20:07)
[2020-08-22] MEDS ORDERED: QUEtiapine 100 MG TABLET PO SCH (21:00)
[2020-08-22] MEDS ORDERED: ATORVASTATIN 10 MG TABLET PO SCH (21:00)
--- NOTE | 2020-08-22 21:21 | ADVANCE CARE PLANNING NOTE ---
Advance Care Planning - Planning Encounter Date: 08/22/20 Time: 21:19 Purpose: To clarify goals of care. Parties in Attendance: The patient and myself. Decisional Capacity of the Patient: She has the capacity to make her own medical decisions. - Diagnosis for Encounter (1) Acute respiratory failure with hypoxia Summary: She is admitted for acute hypoxic respiratory failure secondary to community- acquired pneumonia. Her chest x-ray is concerning for bilateral infiltrates. She is requiring 4 L of oxygen to maintain her saturations. We have started her on IV antibiotics with ceftriaxone and azithromycin. - Encounter Subjective/Patient's Story: She lives at home alone but her daughter lives right next door. 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 She no longer works. She tells me she is normally quite active and ambulate without any issues. She has had bilateral knee replacements in the past. She did smoke from the age of 12 until about the age of 29. This was about a half a pack a day. She no longer smokes and she does not drink alcohol. Objective/Medical Story: She now presents with worsening dyspnea for the past few days and found to have bilateral pneumonia and acute hypoxic respiratory failure. She is requiring 4 L of oxygen. She reports he does not appear septic and not in respiratory distress. She is admitted for IV antibiotics. Her respiratory PCR panel has been negative. Goals of Care: She has made it quite clear that she does not want any heroic measures. She does not want CPR. She is agreeable to mechanical ventilation if it is temporary. Plan: She is agreeable to mechanical ventilation if it is temporary. She does not want CPR or any heroic measures. She will be made a DNR with intubation. Additional Discussion: We discussed what entails of CPR. We discussed the potential need for mechanical ventilation if respiratory status were to decline. This can be temporary until we treat the underlying illness. She is agreeable to mechanical ventilation but does not want any heroic measures. Code Status: Do Not Attempt Resuscitation Time spent on advance care plannin
[2020-08-22] MEDS: lamoTRIgine 25 MG TABLET PO SCH (21:41)
[2020-08-23] MEDS: ACETAMINOPHEN 325 MG TABLET PO PRN ×2 (02:02→06:30)
[2020-08-23] MEDS: SODIUM CHLORIDE FLUSH 0.9% 10 ML SYRINGE IVP SCH ×3 (02:02→16:29)
[2020-08-23 05:18] LABS: BASOPHILS % (AUTO) 0.3 %; EOSINOPHILS # (AUTO) 0.2 10^3/uL (0.0-0.7); EOSINOPHILS % (AUTO) 1.4 %; HCT - HEMATOCRIT 35.5 % (37.0-47.0); HGB - HEMOGLOBIN 11.5 g/dL (12.0-16.0); LYMPHOCYTES % (AUTO) 12.7 %; MEAN CORPUSCULAR HEMOGLOBIN 28.1 pg (27.0-31.0); MEAN CORPUSCULAR HGB CONC 32.4 g/dL (32.0-36.0); MEAN CORPUSCULAR VOLUME 86.8 fL (81.0-99.0); MEAN PLATELET VOLUME 9.8 fL (7.9-10.8); MONOCYTES # (AUTO) 1.1 10^3/uL (0.0-1.0); MONOCYTES % (AUTO) 6.9 %; PLT - PLATELET COUNT 318 10^3/uL (130-450); RED BLOOD COUNT 4.09 10^6/uL (4.20-5.40); WHITE BLOOD COUNT 15.3 x10^3/uL (4.8-10.8)
[2020-08-23 05:28] LABS: CALCIUM 8.4 mg/dL (8.5-10.3); CREATININE 0.8 mg/dL (0.4-1.0); MAGNESIUM 2.3 mg/dL (1.7-2.8); POTASSIUM 3.4 mmol/L (3.5-5.0)
[2020-08-23] MEDS ORDERED: POTASSIUM CHLORIDE 20 MEQ TABLET PO ONE ×2 (06:52→07:09)
[2020-08-23] MEDS ORDERED: LEVOTHYROXINE 75 MCG TABLET PO SCH (07:00)
[2020-08-23] MEDS: SACCHAROMYCES BOULARDII 250 MG CAPSULE PO SCH ×2 (08:21→16:28)
[2020-08-23] MEDS: lamoTRIgine 25 MG TABLET PO SCH (08:22)
[2020-08-23] MEDS ORDERED: QUEtiapine 25 MG TABLET PO SCH (09:00)
[2020-08-23] MEDS ORDERED: lisinopriL 5 MG TABLET PO SCH (09:00)
[2020-08-23] MEDS ORDERED: SERTRALINE 25 MG TABLET PO SCH (09:00)
[2020-08-23] MEDS ORDERED: PANTOPRAZOLE 40 MG TABLET PO SCH (09:00)
[2020-08-23] MEDS ORDERED: ENOXAPARIN 40 MG/0.4 ML SYRINGE SUBQ SCH (09:00)
[2020-08-23] MEDS: ALBUTEROL NEB 2.5 MG/3 ML INH PRN ×3 (09:22→21:27)
--- NOTE | 2020-08-23 11:10 | PROVIDER PROGRESS NOTE ---
Assessment/Plan - Problem List (1) Acute respiratory failure with hypoxia Assessment/Plan: Patient reported she feel better, tachycardia is resolved. But patient still need 5 L of oxygen, With mild tachypnea. Discussed with RT, RT recommended heated high flow nasal cannula. pt tolerated well with 40 LPM and 40% FiO2 to decrease work of her breathing. Now pt had 94% sat with RR 24. Patient report she smoked pipes. Plan to have CT of the chest if patient's condition continue or not improve or worsening. Continue with antibiotics for patient pneumonia, continue supplement of oxygen as needed, continue breathing treatment. (2) Community acquired pneumonia Conclusion/Plan: Patient was a found to have community acquired pneumonia which appears to be the cause of her acute hypoxic respiratory failure. Her x-ray is consistent with bilaterally atypical pneumonia/pneumonitis. pt's Covid is negative, We will place her on ceftriaxone added to 2 gram daily and azithromycin IV for community-acquired pneumonia. Continue supplemental oxygen as mentioned above. followup with blood cultures. (3) Hypokalemia K is 3.4, will replace and lab monitor (4) Bipolar disorder Stable. We will continue her home lamotrigine, Seroquel, Zoloft, and check serum Lamotrigine (5) Hypertension Conclusion/Plan: We will continue her home lisinopril. (6) Hypothyroidism Conclusion/Plan: Stable. Continue her home Synthroid and check TSH - Current Meds Current Meds: Current Medications Generic Name Dose Route Start Last Admin Trade Name Freq PRN Reason Stop Dose Admin Acetaminophen 650 mg 08/22/20 19:48 08/23/20 06:30 Acetaminophen 325 Mg Tablet PO 650 mg Q4HR PRN Administration Pain 1 to 4 Albuterol 2.5 mg 08/22/20 19:52 08/23/20 09:22 Albuterol Neb 2.5 Mg/3 Ml INH 2.5 mg Q4HR PRN Administration Wheezing Atorvastatin Calcium 40 mg 08/22/20 21:00 08/22/20 21:41 Atorvastatin 10 Mg Tablet PO Not Given HS ARDEN Enoxaparin Sodium 40 mg 08/23/20 09:00 08/23/20 08:28 Enoxaparin 40 Mg/0.4 Ml Syringe SUBQ 40 mg DAILY [facility] Administration Lamotrigine 25 mg 08/22/20 21:00 08/23/20 08:22 Lamotrigine 25 Mg Tablet PO 25 mg BID [facility] Administration Levothyroxine Sodium 75 mcg 08/23/20 07:00 08/23/20 06:31 Levothyroxine 75 Mcg Tablet PO 75 mcg QDAC [facility] Administration Lisinopril 10 mg 08/23/20 09:00 08/23/20 08:22 Lisinopril 5 Mg Tablet PO 10 mg DAILY [facility] Administration Pantoprazole Sodium 40 mg 08/23/20 09:00 08/23/20 08:22 Pantoprazole 40 Mg Tablet PO 40 mg DAILY [facility] Administration Quetiapine Fumarate 25 mg 08/23/20 09:00 08/23/20 08:23 Quetiapine 25 Mg Tablet PO 25 mg DAILY [facility] Administration Quetiapine Fumarate 100 mg 08/22/20 21:00 08/22/20 22:54 Quetiapine 100 Mg Tablet PO Not Given QPM ARDEN Saccharomyces Boulardii 250 mg 08/23/20 08:00 08/23/20 08:21 Saccharomyces Boulardii 250 Mg Capsule PO 250 mg BIDWM [facility] Administration Sertraline HCl 75 mg 08/23/20 09:00 08/23/20 08:23 Sertraline 25 Mg Tablet PO 75 mg DAILY [facility] Administration Sodium Chloride 10 ml 08/23/20 01:00 08/23/20 08:28 Sodium Chloride Flush 0.9% 10 Ml Syringe IVP 10 ml 0100,0900,1700 ARDEN Administration - Lab Result Fish Bone Diagrams: 08/23/20 04:54 08/23/20 04:54 - Additional Planning My Orders: My Active Orders 08/23/20 08:00 Saccharomyces Boulardii [Florastor] 250 mg PO BIDWM 08/23/20 08:05 LAMOTRIGINE [REFLAB] Routine 08/23/20 21:00 cefTRIAXone [Rocephin] 2 gm Sodium Chloride 0.9% Minibag [Normal Saline 0.9% Minibag] 100 ml IV HS 08/24/20 05:00 CRP - C-REACTIVE PROTEIN [CHEM] DAILYLAB 08/25/20 05:00 CRP - C-REACTIVE PROTEIN [CHEM] DAILYLAB 08/26/20 05:00 CRP - C-REACTIVE PROTEIN [CHEM] DAILYLAB 08/27/20 05:00 CRP - C-REACTIVE PROTEIN [CHEM] DAILYLAB 08/28/20 05:00 CRP - C-REACTIVE PROTEIN [CHEM] DAILYLAB Subjective - Subjective Patient Reports: Feeling Better Objective Vital Signs: Vital Signs - 24 hr 08/22/20 08/22/20 08/22/20 17:16 17:34 17:53 Temperature 36.5 C Heart Rate 94 85 91 Heart Rate [ Brachial] Respiratory 16 22 33 H Rate Blood Pressure 178/78 H 150/100 H 153/77 H Blood Pressure [Right Brachial artery] O2 Saturation 82 L 97 91 L 08/22/20 08/22/20 08/22/20 17:56 17:57 18:02 Temperature Heart Rate 95 88 Heart Rate [ Brachial] Respiratory 32 H 31 H Rate Blood Pressure 139/97 H Blood Pressure [Right Brachial artery] O2 Saturation 93 94 08/22/20 08/22/20 08/22/20 18:14 18:20 20:14 Temperature Heart Rate 87 Heart Rate [ Brachial] Respiratory 16 Rate Blood Pressure 117/72 Blood Pressure [Right Brachial artery] O2 Saturation 99 96 93 08/22/20 08/23/20 08/23/20 20:35 00:57 05:00 Temperature 37.0 C 36.5 C 36.6 C Heart Rate Heart Rate [ 106 H 78 68 Brachial] Respiratory 28 H 18 18 Rate Blood Pressure Blood Pressure 106/66 102/55 L 150/58 H [Right Brachial artery] O2 Saturation 94 93 98 08/23/20 08/23/20 08/23/20 07:55 08:32 09:23 Temperature 36.5 C Heart Rate 75 Heart Rate [ 90 Brachial] Respiratory 22 24 24 Rate Blood Pressure Blood Pressure 151/101 H [Right Brachial artery] O2 Saturation 95 92 Oxygen O2 Source [With Activity] Nasal cannula O2 Source [Without Activity] Nasal cannula O2 Source Nasal cannula Oxygen Flow Rate 5 I&O (Last 24 Hrs): Intake and Output Totals x24h 08/21/20 08/22/20 08/23/20 23:59 23:59 23:59 Intake Total 450.000 270 Output Total 450 Balance 450.000 -180 General: Alert, Oriented x3, Cooperative, Mild distress HEENT: Atraumatic, PERRLA Neck: Supple Lymphatic: no adenopathy Neuro: Alert, Non Focal, Oriented Times 3 Cardiovascular: Regular rate, Normal S1, Normal S2 Respiratory: Chest non-tender Abdomen: Normal bowel sounds, Soft Extremities: Normal pulses - Results Results: Laboratory Results WBC 15.3 x10^3/uL (4.8-10.8) H 08/23/20 04:54 RBC 4.09 10^6/uL (4.20-5.40) L 08/23/20 04:54 Hgb 11.5 g/dL (12.0-16.0) L 08/23/20 04:54 Hct 35.5 % (37.0-47.0) L 08/23/20 04:54 MCV 86.8 fL (81.0-99.0) 08/23/20 04:54 MCH 28.1 pg (27.0-31.0) 08/23/20 04:54 MCHC 32.4 g/dL (32.0-36.0) 08/23/20 04:54 RDW 13.0 % (12.0-15.0) 08/23/20 04:54 Plt Count 318 10^3/uL (130-450) 08/23/20 04:54 MPV 9.8 fL (7.9-10.8) 08/23/20 04:54 Neut # (Auto) 12.0 10^3/uL (1.5-6.6) H 08/23/20 04:54 Lymph # (Auto) 2.0 10^3/uL (1.5-3.5) 08/23/20 04:54 [place] # (Auto) 1.1 10^3/uL (0.0-1.0) H 08/23/20 04:54 Eos # (Auto) 0.2 10^3/uL (0.0-0.7) 08/23/20 04:54 Baso # (Auto) 0.0 10^3/uL (0.0-0.1) 08/23/20 04:54 Absolute Nucleated RBC 0.00 x10^3/uL 08/23/20 04:54 Nucleated RBC % 0.0 /100WBC 08/23/20 04:54 Sodium 137 mmol/L (135-145) 08/23/20 04:54 Potassium 3.4 mmol/L (3.5-5.0) L 08/23/20 04:54 Chloride 99 mmol/L (101-111) L 08/23/20 04:54 Carbon Dioxide 28 mmol/L (21-32) 08/23/20 04:54 Anion Gap 10.0 (6-13) 08/23/20 04:54 BUN 18 mg/dL (6-20) 08/23/20 04:54 Creatinine 0.8 mg/dL (0.4-1.0) 08/23/20 04:54 Estimated GFR (MDRD) 71 (>89) L 08/23/20 04:54 Glucose 105 mg/dL (70-100) H 08/23/20 04:54 Lactic Acid 0.9 mmol/L (0.5-2.2) 08/22/20 20:00 Calcium 8.4 mg/dL (8.5-10.3) L 08/23/20 04:54 Magnesium 2.3 mg/dL (1.7-2.8) 08/23/20 04:54 Total Bilirubin 0.7 mg/dL (0.2-1.0) 08/22/20 17:40 AST 19 IU/L (10-42) 08/22/20 17:40 ALT 18 IU/L (10-60) 08/22/20 17:40 Alkaline Phosphatase 100 IU/L (42-121) 08/22/20 17:40 Troponin I High Sens 6.5 ng/L (2.3-14.8) 08/22/20 22:24 C-Reactive Protein 19.6 mg/dL (0-1.0) H 08/23/20 04:54 B-Natriuretic Peptide 277 pg/mL (5-100) H 08/22/20 17:40 Total Protein 7.3 g/dL (6.7-8.2) 08/22/20 17:40 Albumin 3.4 g/dL (3.2-5.5) 08/22/20 17:40 Globulin 3.9 g/dL (2.1-4.2) 08/22/20 17:40 Albumin/Globulin Ratio 0.9 (1.0-2.2) L 08/22/20 17:40 TSH 1.72 uIU/mL (0.34-5.60) 08/23/20 04:54 Nasal Adenovirus (PCR) NOT DETECTED 08/22/20 17:50 Nasal B. parapertussis DNA (PCR) NOT DETECTED 08/22/20 17:50 Nasal Coronavir 229E PCR NOT DETECTED 08/22/20 17:50 Nasal Coronavir HKU1 PCR NOT DETECTED 08/22/20 17:50 Nasal Coronavir NL63 PCR NOT DETECTED 08/22/20 17:50 Nasal Coronavir OC43 PCR NOT DETECTED 08/22/20 17:50 Nasal Enterovir/Rhinovir PCR NOT DETECTED 08/22/20 17:50 Nasal Influenza B PCR NOT DETECTED 08/22/20 17:50 Nasal Influenza A PCR NOT DETECTED 08/22/20 17:50 Nasal Parainfluen 1 PCR NOT DETECTED 08/22/20 17:50 Nasal Parainfluen 2 PCR NOT DETECTED 08/22/20 17:50 Nasal Parainfluen 3 PCR NOT DETECTED 08/22/20 17:50 Nasal Parainfluen 4 PCR NOT DETECTED 08/22/20 17:50 Nasal RSV (PCR) NOT DETECTED 08/22/20 17:50 Nasal B.pertussis DNA PCR NOT DETECTED 08/22/20 17:50 Nasal C.pneumoniae (PCR) NOT DETECTED 08/22/20 17:50 José Luis Human Metapneumo PCR NOT DETECTED 08/22/20 17:50 Nasal M.pneumoniae (PCR) NOT DETECTED 08/22/20 17:50 Nasal SARS-CoV-2 (PCR) NOT DETECTED 08/22/20 17:50 - Procedures Procedures: Procedures DESTRUCT-KNEE LESION NEC (02/01/14) EXCIS KNEE SEMILUN CARTL (02/01/14) EXCISION OF ESOPHAGUS, ENDO, DIAGN (11/17/19) INSPECTION OF LOWER INTESTINAL TRACT, ENDO (03/11/15) OTHER ENDOSCOPY OF SM INTEST (11/19/12) RECTOCELE REPAIR (01/13/14) TOTAL KNEE REPLACEMENT (03/22/14) ABX Reporting Has patient been on IV antibiotics over the past 48 hours?: Yes Current Medications - Current Medications Current Medications: Active Medications Acetaminophen (Acetaminophen 325 Mg Tablet) 650 mg PO Q4HR PRN PRN Reason: Pain 1 to 4 Last Admin: 08/23/20 06:30 Dose: 650 mg Documented by: Albuterol (Albuterol Neb 2.5 Mg/3 Ml) 2.5 mg INH Q4HR PRN PRN Reason: Wheezing Last Admin: 08/23/20 09:22 Dose: 2.5 mg Documented by: Atorvastatin Calcium (Atorvastatin 10 Mg Tablet) 40 mg PO HS [facility] Last Admin: 08/22/20 21:41 Dose: Not Given Documented by: Enoxaparin Sodium (Enoxaparin 40 Mg/0.4 Ml Syringe) 40 mg SUBQ DAILY [facility] Last Admin: 08/23/20 08:28 Dose: 40 mg Documented by: Azithromycin 500 mg/ Sodium (Chloride) 250 mls @ 250 mls/hr IV [facility] Stop: 08/24/20 21:59 Ceftriaxone Sodium 2 gm/ (Sodium Chloride) 100 mls @ 200 mls/hr IV [facility] Stop: 08/26/20 21:29 Lamotrigine (Lamotrigine 25 Mg Tablet) 25 mg PO BID [facility] Last Admin: 08/23/20 08:22 Dose: 25 mg Documented by: Levothyroxine Sodium (Levothyroxine 75 Mcg Tablet) 75 mcg PO QDAC [facility] Last Admin: 08/23/20 06:31 Dose: 75 mcg Documented by: Lisinopril (Lisinopril 5 Mg Tablet) 10 mg PO DAILY [facility] Last Admin: 08/23/20 08:22 Dose: 10 mg Documented by: Ondansetron HCl (Ondansetron Odt 4 Mg Tablet) 4 mg TL Q6HR PRN PRN Reason: Nausea / Vomiting Pantoprazole Sodium (Pantoprazole 40 Mg Tablet) 40 mg PO DAILY [facility] Last Admin: 08/23/20 08:22 Dose: 40 mg Documented by: Quetiapine Fumarate (Quetiapine 25 Mg Tablet) 25 mg PO DAILY [facility] Last Admin: 08/23/20 08:23 Dose: 25 mg Documented by: Quetiapine Fumarate (Quetiapine 100 Mg Tablet) 100 mg PO QPM [facility] Last Admin: 08/22/20 22:54 Dose: Not Given Documented by: Saccharomyces Boulardii (Saccharomyces Boulardii 250 Mg Capsule) 250 mg PO BIDWM [facility] Last Admin: 08/23/20 08:21 Dose: 250 mg Documented by: Sertraline HCl (Sertraline 25 Mg Tablet) 75 mg PO DAILY [facility] Last Admin: 08/23/20 08:23 Dose: 75 mg Documented by: Sodium Chloride (Sodium Chloride Flush 0.9% 10 Ml Syringe) 10 ml IVP PRN PRN PRN Reason: NEEDED PER PROVIDER ORDERS Sodium Chloride (Sodium Chloride Flush 0.9% 10 Ml Syringe) 10 ml IVP 0100,0900,1700 [facility] Last Admin: 08/23/20 08:28 Dose: 10 ml Documented by:
--- NOTE | 2020-08-23 11:51 | PHARMACY PROGRESS NOTE ---
- Best Possible Medication History Admit Date and Time: 08/22/201947 Processed by: Pharmacy Medication History completed: Yes Patient Interview: Completed (Patient is familiar with her medications and was able to state when/how she takes each) Secondary Source(s): Pharmacy records, Insurance records As the person ultimately responsible for medication therapy, providers are able to order a medication from an existing home medication list in [facility] via the "Reconcile Routine" prior to Confirmation of that medication by client support representative. Such practice is discouraged except when the physician, in their clinical judgment, deems that a medical need exists for a medication without regard to previous use.
[2020-08-23] MEDS ORDERED: IOPAMIDOL-300 100 ML VIAL ONE (17:57)
[2020-08-23] MEDS ORDERED: IPRATROPIUM/ALBUTEROL 3 ML NEB INH PRN (19:12)
[2020-08-23 19:32] LABS: ABG BASE EXCESS 3.8 mmol/L (-2.0-3.0); ABG HCO3 28.7 mmol/L (22.0-26.0); ABG OXYGEN SATURATION 93 % (94-98); ABG PCO2 44 mmHg (34-45); ABG PH 7.43 (7.35-7.45); ABG PO2 67 mmHg (80-100); ALLEN TEST POSITIVE
[2020-08-23] MEDS ORDERED: cefTRIAXone 2 GM in SODIUM CHLORIDE 0.9% MINIBAG 100 ML IV SCH (21:00)
[2020-08-23] MEDS ORDERED: cefTRIAXone 1 GM in SODIUM CHLORIDE 0.9% MINIBAG 100 ML IV SCH (21:00)
[2020-08-23] MEDS ORDERED: AZITHROMYCIN INJ 500 MG in SODIUM CHLORIDE 0.9% 250 ML IV SCH (21:00)
[2020-08-23] MEDS ORDERED: MORPHINE 2 MG/ML CARPUJECT IVP PRN (21:01)
[2020-08-23] MEDS: SODIUM CHLORIDE FLUSH 0.9% 10 ML SYRINGE IVP PRN ×2 (21:12→21:35)
[2020-08-23] MEDS ORDERED: FUROSEMIDE 40 MG/4 ML VIAL IVP STA (21:45)
[2020-08-23 21:52] VITALS: BP 56/16
[2020-08-23] MEDS ORDERED: metroNIDAZOLE 500 MG/100 ML 500 MG/100 ML BAG IV SCH (22:00)
--- NOTE | 2020-08-23 22:03 | PROVIDER PROGRESS NOTE ---
Motor Vehicle Or Caravan Salesperson Note - Motor Vehicle Or Caravan Salesperson Note Motor Vehicle Or Caravan Salesperson Note: RT performed ABG at about 1930. sat was 93%. RT told me the patient was witnessed to aspirate yesterday. CT chest (PEW protocol) was performed after that. RN reported that when she came back from CT, she was even more SOB. Morphine 2mg iv was given for dyspnea. RT gave a nebulizer breathing treatment. I examined patient: she was sleepy, appeared ashen and had bilateral rales up 1/2 anteriorly, resp rate was 20-25. Imp: Severe SOB with rales, hypoxia, patient somnolent after Morphine iv. Bilateral infiltrates by admission CXR. Plan: EKG STAT troponin and another in 2 hours, STAT BNP (the BNP yesterday was 277, and there was no repeat). I called CT to have CT scan read STAT. I added Flagyl for possible aspiration pneumonia.
--- NOTE | 2020-08-23 22:18 | CT Report ---
PROCEDURE: ANGIO CHEST W/WO INDICATIONS: sob CONTRAST: IV CONTRAST: Isovue 300 ml: 80 PO CONTRAST: *NO PO CONTRAST TECHNIQUE: After the administration of intravenous contrast, 2 mm thick sections acquired from the pulmonary api tona to the posterior costophrenic angles. 3-dimensional maximum intensity projection (MIP) coronal a nd sagittal reformats were then acquired through the thorax. For radiation dose reduction, the follow ing was used: automated exposure control, adjustment of mA and/or kV according to patient size. COMPARISON: 03/25/2020 FINDINGS: Image quality: Excellent. Pulmonary arteries: Pulmonary arteries are normal in size, and demonstrate no intraluminal filling d efects to suggest central pulmonary embolism. Lungs and pleura: There are diffuse reticulonodular opacities throughout both lung puente. Mediastinum: Heart size is normal, without pericardial effusion. No mediastinal or hilar adenopathy . Thoracic aorta is normal in caliber and enhancement. Esophagus is normal in caliber, without hiat al hernia. Bones and chest wall: No suspicious bony lesions. Ribs and thoracic spine appear intact throughout. The thyroid is normal. No axillary or supraclavicular adenopathy. Abdomen: Visualized upper abdominal solid organs appear normal in the early arterial phase of enhanc ement. IMPRESSION: 1. No pulmonary embolism. 2. Bilateral diffuse reticular nodular opacities. Findings are most consistent with a atypical infect ious process. Pneumonitis from other inflammatory processes are also a consideration. Reviewed by: Wilmer Holden on 08/23/2020 10:17 PM PDT Approved by: Wilmer Holden on 08/23/2020 10:17 PM PDT Station ID: [id number]
[2020-08-23] MEDS ORDERED: IOPAMIDOL-300 100 ML VIAL IVP ONE (22:33)
--- OUTSIDE RECORDS SUMMARY | 2020-08-24 03:17 | EXTERNAL MEDICAL SUMMARY RPT | Continuity of Care Document ---
:1950 Demographics Phone Unavailable Preferred Language Unknown Marital Status Unknown Jew Affiliation Unknown Race Unknown Ethnic Group Unknown Author Organization [facility] Address [address] [phone] Phone Social History date description facility [phone]
--- OUTSIDE RECORDS SUMMARY | 2020-08-24 03:17 | EXTERNAL MEDICAL SUMMARY RPT | Continuity of Care Document ---
:1950 Demographics Phone Unavailable Preferred Language Unknown Marital Status Unknown Orthodox Affiliation Unknown Race Unknown Ethnic Group Unknown Author Organization [facility] Address [address] [phone] Phone Social History date description facility [phone]
--- OUTSIDE RECORDS SUMMARY | 2020-08-24 03:18 | EXTERNAL MEDICAL SUMMARY RPT | Continuity of Care Document ---
:1950 Demographics Phone Unavailable Preferred Language Unknown Marital Status Unknown Gnosticism Affiliation Unknown Race Unknown Ethnic Group Unknown Author Organization [facility] Address [address] [phone] Phone Social History date description facility [phone]
--- NOTE | 2020-08-24 06:52 | DISCHARGE SUMMARY ---
Discharge Summary Admit Date: 08/22/20 Discharge Date: 08/23/20 Discharging Provider: Dr Francia Reyes Primary Care Provider: VADIM Edgar Discharge Disposition: 20 - HPI History of Present Illness: From the admission H&P of Dr. Tej Escobarf: This is a 70-year-old female with a past medical history significant for bipolar disorder, hypertension, hypothyroidism who presents today complaining of worsening shortness of breath. She states her symptoms began last week and have since progressed. She is normally quite active and independent and due to her dyspnea, she has become more sedentary. She feels short of breath even at rest but it is worse with exertion. She has had cough with occasional sputum production that is clear. She reports no fevers or chills. Denies any lower extremity edema. She has chest pain only with deep inspiration. Denies any nasal congestion, sore throat. She reports no prior history of pneumonia. She smokes half a pack a day for about 15 years but quit in the 1980s. She does smoke marijuana often however. She lives at home alone but her daughter lives right next door. 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 She no longer works. In the emergency department, she was found to be afebrile with temperature of 36.5 C. Her heart rate was in the 80s. Blood pressure was 150/100. She was not tachypneic. She was saturating 82% on room air and this improved to the 97% on 5 L of oxygen via nasal cannula. Labs were significant for a white count of 19.7 with a left shift and a potassium of 2.7. Chest x-ray revealed bilateral infiltrates consistent with atypical pneumonia/pneumonitis. Respiratory PCR panel was negative, including for COVID. BNP was slightly elevated at 277. She was given Azithromycin and Ceftriaxone in the emergency department and was presented for admission. We discussed her wishes for CODE status and what entails CPR. We discussed the potential need for mechanical ventilation if respiratory status were to decline. This can be temporary until we treat the underlying illness. She is agreeable to mechanical ventilation if it is temporary but she has made it quite clear that she does not want any heroic measures. She does not want CPR or resuscitation. - HOSPITAL COURSE Hospital Course: 1) Acute respiratory failure with hypoxia This appeared to be secondary to community-acquired pneumonia. She required 5 L of oxygen to maintain an oxygen saturation in the 90s. Her chest x-ray showed bilateral infiltrates of atypical pneumonia/pneumonitis. She was place on IV antibiotics and continued on supplemental oxygen. Albuterol nebs were ordered prn. A sputum sample was obtained and showed many WBCs, and had gram neg bacilli and rare gram pos cocci. On the second day, she felt more dyspneic, resp rate increased and she needed increased supplemental O2 settings, up to 40- 45L (40% FIO2). An ABG was done that showed pH 7.43, pCO2 44, pO2 67, sat 93% on 40% FIO2. She continued to be more tachypneic and a CT chest was done, looking for PE. As she returned from the CT scanner that evening, before the report was available, she complained of further respiratory worsening. She got a dose of iv Morphine for dyspnea and an Albuterol treatment. Her exam at this point had bilateral rales anteriorly 1/2 way up, heart rate was 115-130 in sinus tachy and she was lethargic. Her iv antibiotics were broadened to cover oral anaerobes, and Lasix iv was ordered, an Echo for the morning was ordered, as wel l as STAT BNP, serial troponins and EKG. Before the EKG was done or labs could be drawn, she became ashen, unresponsive, BP dropped to 56/16 and her heart rate dropped to the 50's in sinus bradycardia. 2) Bradycardic cardiac arrest There had been no known cardiac history, but both of her parents had had CAD. The change in heart rate to 50 was followed by several sinus pauses of 4 to 5 seconds and she then became apneic. Before she could be intubated, she went into asystole. She was not resuscitated, as per her request. She was pronounced at 9:55 pm. 3) Aspiration pneumonia The RT noted her to aspirate food while here. Her diet was changed to pureed. A swallowing eval was planned. The daughter provided more information that she had been "aspirating for about a year, had therefore changed her diet on her own to pureed food, which had actually caused her to lose 100 lbs over the past year". It was with that information and the gram neg bacillus on preliminary sputum culture, that antibiotics were broadened to cover oral anaerobes for a presumed aspiration pneumonia. The daughter reported that family had been urging her to seek medical attention during her week of raspy voice, cough and shortness of breath, which she declined to do until she was finally short of breath even at rest. 4) Community acquired pneumonia The CXR done in the ER showed bilateral infiltrates. She was continued on iv Ceftriaxone and Azithromycin. A sputum sample was obtained and showed many WBCs, and had gram neg bacilli and rare gram pos cocci. The blood cultures were neg to date. The CT chest result confirmed bilateral, diffuse reticular nodular opacities, consistent with atypical pneumonia or pneumonitis from other inflammatory process. The CT chest was negative for pulmonary embolism. 5) Hypokalemia This was replaced po and iv. 6) Bipolar disorder Her home meds, Lamotrigine, Seroquel, and Zoloft, had been ordered to continue here. 7) Hypertension Her home med Lisinopril had been ordered to continue here. 8) Hypothyroidism The TSH was acceptable at 1.72 and her Synthroid dose was ordered to continue here. - ALLERGIES Allergies/Adverse Reactions: Allergies Allergy/AdvReac Type Severity Reaction Status Date / Time oxycodone [Oxycodone] Allergy Intermediate Itching Verified 08/22/20 17:15 codeine [Codeine] AdvReac Mild Nausea Verified 08/22/20 17:15 - MEDICATIONS Home Medications: Ambulatory Orders Medication Instructions Recorded Confirmed Levothyroxine [Synthroid] 75 mcg PO QDAC #7 tablet 11/27/19 08/22/20 Lisinopril [Prinivil] 10 mg PO DAILY #7 tablet 11/27/19 08/22/20 Omeprazole 40 mg PO DAILY #14 tab 11/27/19 08/22/20 QUEtiapine [SEROquel] 25 mg PO DAILY #7 tab 11/27/19 08/22/20 QUEtiapine [SEROquel] 100 mg PO QPM #7 tab 11/27/19 08/22/20 Sertraline [Zoloft] 75 mg PO DAILY #21 tab 11/27/19 08/22/20 Atorvastatin Calcium 40 mg PO QPM 08/23/20 08/23/20 Cholecalciferol [Vitamin D3] 50 mcg PO DAILY 08/23/20 08/23/20 Thiamine [Vitamin B-1] 100 mg PO DAILY 08/23/20 08/23/20 lamoTRIgine [LaMICtal] 25 mg PO BID 08/23/20 08/23/20 - LABS Result Diagrams: 08/23/20 04:54 08/23/20 04:54 - DIAGNOSTIC IMAGING Diagnostic Imaging Results: Final report reviewed
== END 2020-08-23 21:55 | disposition expired | DRG 189 ==
LOC: ED 17:07 → MS2 19:48
PROVIDERS: ADMIT Internal Medicine; ATTEND Internal Medicine
DX: J96.01 Acute respiratory failure with hypoxia (principal); R09.02 Hypoxemia; I46.9 Cardiac arrest, cause unspecified; J69.0 Pneumonitis due to inhalation of food and vomit; J18.9 Pneumonia, unspecified organism; E87.6 Hypokalemia; I10 Essential (primary) hypertension; G47.30 Sleep apnea, unspecified; E03.9 Hypothyroidism, unspecified; E78.00 Pure hypercholesterolemia, unspecified; K21.9 Gastro-esophageal reflux disease without esophagitis; Z20.822 Contact with and (suspected) exposure to COVID-19; Z72.89 Other problems related to lifestyle; K44.9 Diaphragmatic hernia without obstruction or gangrene; F43.10 Post-traumatic stress disorder, unspecified; F31.9 Bipolar disorder, unspecified; F41.9 Anxiety disorder, unspecified; F41.0 Panic disorder [episodic paroxysmal anxiety]; Z66 Do not resuscitate; Z96.659 Presence of unspecified artificial knee joint; Z79.899 Other long term (current) drug therapy; Z87.891 Personal history of nicotine dependence
CPT/HCPCS: 36415; 36600; 71045; 71275; 80048; 80053; 80175; 82803; 83605; 83735; 83880; 84443; 84484; 85025; 86140; 87040; 87070; 87205; 87631; 93005; 94640; 99284; 99285; A9270; J1650; Q9967; 0202U